=== PATIENT | female | born 1995 | race Caucasian/White ===

== ENCOUNTER 2022-10-18 01:53 | Emergency (ER) | payer OTHER, SELFPAY ==
[2022-10-18 02:08] VITALS: BP 146/100; PULSE 114; RESP 20; TEMP 36.9; O2SAT 98; BMI 26.4
[2022-10-18 02:27] VITALS: BP 141/95; PULSE 110; RESP 14; O2SAT 98
--- NOTE | 2022-10-18 02:30 | ED.GENADULT ---
HPI - General Adult General Chief complaint: General Medical Stated complaint: left arm pain, going numb, feeling faint Time Seen by Provider: 10/18/22 02:21 Source: patient Mode of arrival: ambulatory Limitations: no limitations History of Present Illness HPI narrative: Patient history of depression been drinking heavy for last 4-5 days drinks whiskey also patient been vomiting since yesterday not able to eat much denies any abdominal pain complaining of dizziness and left arm numbness no headache denies any suicide ideation feeling increasingly depressed also patient is complaining of numbness the left hand which has gone now Related Data Allergies Allergy/AdvReac Type Severity Reaction Status Date / Time No Known Allergies Allergy Unverified 06/15/20 16:32 [No Known Allergies*] Review of Systems Review of Systems: Yes all other systems are reviewed and are negative [facility], [facility] Social History Social History Alcohol intake: current Alcohol type: hard liquor Smoked in Last 30 Days: Yes Substance Use Type: Marijuana Substance Use Frequency: Daily Substance Use Frequency Other:: once daily Last Used Substance: Hours (ago) Advance Directives: No Advance Directives Information Provided: Yes Physical Exam ED Vital Signs: Vital Signs - 24 hr 10/18/22 02:08 10/18/22 02:27 10/18/22 04:49 Temperature 98.4 F 99.5 F Pulse Rate 114 H 110 H 100 Respiratory Rate 20 14 14 Blood Pressure 146/100 H 141/95 H 133/83 Pulse Oximetry 98 98 100 Oxygen Delivery Method Room Air Room Air Room Air BMI result Body Mass Index 26.4 Appearance: Alert. Oriented X3. No acute distress. Anxious Eyes: PERRLA, No Nystagmus ENT: Pharynx normal. Oral Mucosa moist Neck: Normal inspection. Neck supple. CVS: Sinus tachycardia Pulses normal. Respiratory: No respiratory distress. Equal air entry bilateral, no wheezing/rales/rhonchi Abdomen: Soft and nontender. Bowel sounds are present, no mass palpable, no CVA tenderness Skin: Skin warm and dry. Normal skin color. Normal skin turgor. Extremities: No lower extremity edema. No calf tenderness Neuro: Oriented X 3. No motor deficit. No sensory deficit.No cerebellar signs , cranial nerves II-XII intact Medications Administered Discontinued Medications Generic Name Dose Route Start Last Admin Trade Name Freq PRN Reason Stop Dose Admin Famotidine 20 mg 10/18/22 02:35 10/18/22 03:05 Famotidine/Pf 20 Mg/2 Ml Vial IVPUSH 10/18/22 02:36 20 mg ONCE ONE Administration Sodium Chloride 1,000 mls @ 999 mls/hr 10/18/22 02:34 10/18/22 04:20 Ns IV 10/18/22 03:34 Infused .Q1H1M ONE Infusion Lorazepam 1 mg 10/18/22 02:35 10/18/22 03:05 Lorazepam 1 Mg Tablet PO 10/18/22 02:36 1 mg ONCE ONE Administration Ondansetron HCl 4 mg 10/18/22 02:34 10/18/22 03:05 Ondansetron Hcl 4 Mg/2 Ml Vial IVPUSH 10/18/22 02:35 4 mg ONCE ONE Administration Medical Decision Making Medical Decision Making MDM Narrative: Patient alcohol abuse/dependence Lab Data MDM Lab Attestation statement: I reviewed the patient's lab results. 10/18/22 02:44 10/18/22 02:44 Labs: Lab Results 10/18/22 10/18/22 10/18/22 Range/Units 02:44 02:44 04:38 WBC 16.1 H (4.8-10.8) X10*3/uL RBC 5.42 (4.20-5.50) X10*6/uL Hgb 15.4 (12.0-16.0) g/dl Hct 45.1 (37.0-47.0) % MCV 83.2 (80.0-98.0) fL MCH 28.4 (27.0-33.0) pg MCHC 34.1 (31.0-35.0) g/dl RDW 13.8 (11.0-16.0) % Plt Count 366 (160-400) X10*3/uL MPV 8.7 L (9.4-12.3) fL Immature Gran % (Auto) 0.2 (0.0-0.4) % Neut % (Auto) 82.8 H (45-73) % Lymph % (Auto) 10.9 L (20-40) % [place] % (Auto) 5.6 (2-11) % Eos % (Auto) 0.1 (0-4) % Baso % (Auto) 0.4 (0-2) % Lymph # (Auto) 1.8 (1.2-4.9) X10*3/uL [place] # (Auto) 0.9 (0.1-1.2) X10*3/uL Eos # (Auto) 0.0 (0.0-0.4) X10*3/uL Baso # (Auto) 0.1 (0.0-0.2) X10*3/uL Abs Immat Gran (auto) 0.04 H (0.00-0.03) X10*3/uL Absolute Neuts (auto) 13.3 H (2.0-8.3) x10*3/uL Absolute Nucleated RBC 0.000 (0.0-0.012) X10*3/uL Nucleated RBC % (auto) 0.0 (0.0-0.2) /100WBC Sodium 137 (135-145) mmol/L Potassium 3.4 (3.3-5.1) mmol/L Chloride 97 (96-108) mmol/L Carbon Dioxide 26 (22-29) mmol/L Anion Gap 17 (12-20) BUN 4 L (9-16) mg/dL Creatinine 0.75 (0.5-1.4) mg/dL Estim Creat Clear Calc 97.0 Estimated GFR > 60 Random Glucose 132 H (60-115) mg/dL Calcium 9.6 (8.4-10.2) mg/dL Magnesium 1.6 (1.6-2.6) mg/dL Total Bilirubin 0.8 (0.0-1.0) mg/dL AST 35 H (5-31) U/L ALT 22 (0-31) U/L Alkaline Phosphatase 92 (39-117) U/L Total Protein 7.9 (6.5-8.0) g/dL Albumin 4.6 (3.5-5.0) g/dL Lipase 9 (8-78) U/L Urine Color Yellow Urine Appearance Cloudy Urine pH 6.0 (5.0-9.0) Ur Specific [place] 1.020 (1.005-1.025) Urine Protein 30 (1+) H (Neg-Trace) mg/dL Urine Glucose (UA) Negative (Negative) mg/dL Urine Ketones 15 (Negative) mg/dL Urine Blood Small (1+) H (Negative) Urine Nitrite Negative (Negative) Ur Leukocyte Esterase Trace H (Negative) Urine RBC 6-10 H (0-2) /HPF Urine WBC 0-5 (0-5) /HPF Ur Squamous Epith Cells 11-20 (0-2) /HPF Urine Bacteria Trace (None Seen) Hyaline Casts 0-2 (0-2) /LPF Urine Test (NEGATIVE) Ethyl Alcohol < 10 mg/dL 10/18/22 Range/Units 04:38 WBC (4.8-10.8) X10*3/uL RBC (4.20-5.50) X10*6/uL Hgb (12.0-16.0) g/dl Hct (37.0-47.0) % MCV (80.0-98.0) fL MCH (27.0-33.0) pg MCHC (31.0-35.0) g/dl RDW (11.0-16.0) % Plt Count (160-400) X10*3/uL MPV (9.4-12.3) fL Immature Gran % (Auto) (0.0-0.4) % Neut % (Auto) (45-73) % Lymph % (Auto) (20-40) % [place] % (Auto) (2-11) % Eos % (Auto) (0-4) % Baso % (Auto) (0-2) % Lymph # (Auto) (1.2-4.9) X10*3/uL [place] # (Auto) (0.1-1.2) X10*3/uL Eos # (Auto) (0.0-0.4) X10*3/uL Baso # (Auto) (0.0-0.2) X10*3/uL Abs Immat Gran (auto) (0.00-0.03) X10*3/uL Absolute Neuts (auto) (2.0-8.3) x10*3/uL Absolute Nucleated RBC (0.0-0.012) X10*3/uL Nucleated RBC % (auto) (0.0-0.2) /100WBC Sodium (135-145) mmol/L Potassium (3.3-5.1) mmol/L Chloride (96-108) mmol/L Carbon Dioxide (22-29) mmol/L Anion Gap (12-20) BUN (9-16) mg/dL Creatinine (0.5-1.4) mg/dL Estim Creat Clear Calc Estimated GFR Random Glucose (60-115) mg/dL Calcium (8.4-10.2) mg/dL Magnesium (1.6-2.6) mg/dL Total Bilirubin (0.0-1.0) mg/dL AST (5-31) U/L ALT (0-31) U/L Alkaline Phosphatase (39-117) U/L Total Protein (6.5-8.0) g/dL Albumin (3.5-5.0) g/dL Lipase (8-78) U/L Urine Color Urine Appearance Urine pH (5.0-9.0) Ur Specific [place] (1.005-1.025) Urine Protein (Neg-Trace) mg/dL Urine Glucose (UA) (Negative) mg/dL Urine Ketones (Negative) mg/dL Urine Blood (Negative) Urine Nitrite (Negative) Ur Leukocyte Esterase (Negative) Urine RBC (0-2) /HPF Urine WBC (0-5) /HPF Ur Squamous Epith Cells (0-2) /HPF Urine Bacteria (None Seen) Hyaline Casts (0-2) /LPF Urine Test NEGATIVE (NEGATIVE) Ethyl Alcohol mg/dL Discharge Plan Discharge Clinical Impression: Alcohol abuse Patient Disposition: Home, Self-Care Instructions: Abuse of Alcohol (ED) Additional Instructions: Stop drinking alcohol Follow-up with detox
[2022-10-18 02:57] LABS: MANUAL DIFF FLAG NO
[2022-10-18 02:58] LABS: Basophils Absolute Auto 0.1 X10*3/uL (0.0-0.2); Basophils Percent Auto 0.4 % (0-2); Eosinophils Percent Auto 0.1 % (0-4); Hematocrit 45.1 % (37.0-47.0); Hemoglobin 15.4 g/dl (12.0-16.0); Imm Gran Abs Auto 0.04 X10*3/uL (0.00-0.03); Imm Gran Pct Auto 0.2 % (0.0-0.4); Lymphocytes Absolute Auto 1.8 X10*3/uL (1.2-4.9); Lymphocytes Percent Auto 10.9 % (20-40); Mean Corpuscular HGB Conc 34.1 g/dl (31.0-35.0); Mean Corpuscular Hemoglobin 28.4 pg (27.0-33.0); Mean Corpuscular Volume 83.2 fL (80.0-98.0); Mean Platelet Volume 8.7 fL (9.4-12.3); Monocytes Absolute Auto 0.9 X10*3/uL (0.1-1.2); Monocytes Percent Auto 5.6 % (2-11); Neutrophils Absolute Auto 13.3 x10*3/uL (2.0-8.3); Neutrophils Percent Auto 82.8 % (45-73); Platelet Count 366 X10*3/uL (160-400); Red Blood Count 5.42 X10*6/uL (4.20-5.50); Red Cell Distribution Width 13.8 % (11.0-16.0); White Blood Count 16.1 X10*3/uL (4.8-10.8)
[2022-10-18] MEDS: ondansetron HCL 4 MG/2 ML VIAL IVPUSH (03:05)
[2022-10-18] MEDS: Famotidine/PF 20 MG/2 ML VIAL IVPUSH (03:05)
[2022-10-18] MEDS: LORazepam 1 MG TABLET PO (03:05)
[2022-10-18] MEDS: 0.9 % Sodium Chloride 1,000 ML 999 ML IV (03:06)
[2022-10-18 03:18] LABS: Alanine Aminotransferase 22 U/L (0-31); Albumin Level 4.6 g/dL (3.5-5.0); Alkaline Phosphatase 92 U/L (39-117); Anion Gap 17 (12-20); Aspartate Amino Transferase 35 U/L (5-31); Bilirubin Total 0.8 mg/dL (0.0-1.0); Blood Urea Nitrogen 4 mg/dL (9-16); Calcium 9.6 mg/dL (8.4-10.2); Carbon Dioxide 26 mmol/L (22-29); Chloride 97 mmol/L (96-108); Estimated Glomerular Filt Rate > 60; Ethanol < 10 mg/dL; Glucose Random 132 mg/dL (60-115); Lipase 9 U/L (8-78); Magnesium 1.6 mg/dL (1.6-2.6); Potassium 3.4 mmol/L (3.3-5.1); Sodium 137 mmol/L (135-145); Total Protein 7.9 g/dL (6.5-8.0)
[2022-10-18 04:49] VITALS: BP 133/83; PULSE 100; RESP 14; TEMP 37.5; O2SAT 100
--- NOTE | 2022-10-18 04:59 | PC.NURSE ---
pt ambulated independently/safely to restroom, pt states anxiety has decreased in intensity
[2022-10-18 05:27] LABS: Appearance Urine Cloudy; Color Urine Yellow; Glucose Urine UA Negative (Negative); Leukocyte Esterase Urine Trace (Negative); Nitrite Urine Negative (Negative); UMIC TRIGGER UACC YES; Urine Blood Small (1+) (Negative); Urine Ketones 15 mg/dL (Negative); Urine Protein 30 (1+) mg/dL (Neg-Trace)
[2022-10-18 05:29] LABS: UPreg QC Valid YES; Urine Pregnancy NEGATIVE (NEGATIVE)
[2022-10-18 05:32] LABS: Bacteria Urine Trace (None Seen); Hyaline Casts Urine 0-2 /LPF (0-2); WBC Urine 0-5 /HPF (0-5)
[2022-10-18 05:42] LABS: Amphetamine Screen Urine Not Detected (Not Detect); Barbiturates, Urine Not Detected (Not Detect); Benzodiazepines Screen Urine Not Detected (Not Detect); Cannabinoid Screen Urine POSITIVE (Not Detect); Cocaine Screen Urine Not Detected (Not Detect); Fentanyl, urine Not Detected (Not Detect); Opiate Screen Urine Not Detected (Not Detect); Phencyclidine Screen Urine Not Detected (Not Detect)
--- NOTE | 2022-10-18 06:09 | PC.NURSE ---
discharge instructions given and explained, iv cath tip intact upon removal, ambulates safely/independently. no apparent distress
== END 2022-10-18 06:08 | disposition home or self-care (01) ==
PROVIDERS: Emergency Provider Internal Medicine; PCP Pediatrics
DX: M79.602 Pain in left arm (principal); F10.10 Alcohol abuse, uncomplicated; R20.0 Anesthesia of skin; R11.10 Vomiting, unspecified; R42 Dizziness and giddiness; F32.A Depression, unspecified
CPT/HCPCS: 36415; 80053; 80307; 81001; 81025; 82077; 83690; 83735; 85025; 96361; 96374; 96375; 99284; J2405

== ENCOUNTER 2022-10-27 05:46 | Emergency (ER) | payer OTHER, SELFPAY ==
[2022-10-27 05:56] VITALS: BP 143/89; PULSE 102; RESP 18; TEMP 36.6; O2SAT 99
[2022-10-27 05:59] VITALS: BMI 26.4
--- NOTE | 2022-10-27 06:36 | PC.NURSE ---
Melyssa presents for evaluation of RUE numbness and tingling that she has been experiencing intermittently tonight. She states it usually happens when i've been on a figueroa. Pt admits to heavy alcohol use last night. SHe has no other complaints. Pt is awaiting initial provider johnathan.
--- NOTE | 2022-10-27 07:17 | ED_ITS ---
HPI - Extremity Problem General Chief complaint: Extremity Injury, Upper Stated complaint: left hand numb Time Seen by Provider: 10/27/22 06:41 Source: patient Mode of arrival: ambulatory History of Present Illness HPI Narrative: 27-year-old female who consumes alcohol and has mild withdrawal symptoms in states that she has recurrent difficulties with her left upper extremity being numb and tingly after drinking large amounts of alcohol. Patient denies any traumatic injury, and states that it is her entire left upper extremity. She denies any weakness. Related Data Allergies Allergy/AdvReac Type Severity Reaction Status Date / Time No Known Allergies Allergy Unverified 06/15/20 16:32 [No Known Allergies*] Review of Systems Review of Systems: Pertinent positives and negatives as stated in [facility] Past Medical History Source: nursing notes reviewed Social History Social History Alcohol intake: current Alcohol type: hard liquor Substance Use Type: Marijuana Advance Directives: No Advance Directives Information Provided: Yes Physical Exam Vital Signs: Vital Signs: Last Vital Signs Temp 97.9 F 10/27/22 05:56 Pulse 102 H 10/27/22 05:56 Resp 18 10/27/22 05:56 BP 143/89 H 10/27/22 05:56 Pulse Ox 99 10/27/22 05:56 O2 Del Method 10/27/22 05:56 BMI result Body Mass Index 26.4 VITAL SIGNS: Reviewed. GENERAL: Well developed, well nourished, in no acute distress. HEAD: Normocephalic/atraumatic EYES: PERRLA, EOMI EARS: Ext canals without abnormality OROPHARYNX: no oral lesions noted, posterior pharynx clear NECK: Supple, no adenopathy, no midline cervical spine tenderness or step-offs, range of motion without pain LUNGS: Normal breath sounds. No adventitious sounds or accessory muscle use. SpO2<99> CARDIOVASCULAR: Regular rate and rhythm without noted murmurs ABDOMEN: Soft, non-tender, non-distended with bowel sounds. MUSCULOSKELETAL: No tenderness, deformities, or effusions noted on gross inspection. EXTREMITIES: No cyanosis, clubbing or edema; LEFT UPPER EXTREMITY: Full range of motion at the shoulder/elbow/wrist without erythema or induration, no color changes, palpable pulses at the radius/ulna/brachial hand natural gas inspector 5/5, capillary refill less than 3 seconds seems an abrupt cutoff at the shoulder there is no s welling or erythema to suggest congestion or infection. SKIN: Inspection of the skin reveals no rashes NEUROLOGIC: Alert and oriented x 4. Strength and sensation to light touch were grossly intact x 4. Medical Decision Making Medical Decision Making [facility] Narrative: 27-year-old female with alcohol use disorder in suspect that patient has neuropathic pain in symptoms from the alcohol use as this is a in atraumatic, recurrent problem, will assess with basic lab work to evaluate electrolyte balance. Of reviewed all investigations and my interpretation is that this is nothing to do with any sort of venous/arterial insufficiency, not consistent with focal findings or cervical radiculopathy and still feel that this is likely related to patient's alcohol use. I did add on a B12 and instructed the patient follow-up with her primary care provider, I gave patient folic acid as well as thiamine in have instructed the patient to initiate multivitamin for additional support as she is declining detox at this time. Differential Diagnosis Differential Diagnoses: The differential diagnosis associated with the presentation includes Please see the discussion above Lab Data [facility] Lab Attestation statement: I reviewed the patient's lab results. Please see the discussion above 10/27/22 07:17 10/27/22 07:17 Labs: Lab Results 10/27/22 10/27/22 Range/Units 07:17 07:17 WBC 9.1 (4.8-10.8) X10*3/uL RBC 5.15 (4.20-5.50) X10*6/uL Hgb 14.9 (12.0-16.0) g/dl Hct 44.7 (37.0-47.0) % MCV 86.8 (80.0-98.0) fL MCH 28.9 (27.0-33.0) pg MCHC 33.3 (31.0-35.0) g/dl RDW 13.8 (11.0-16.0) % Plt Count 324 (160-400) X10*3/uL MPV 9.0 L (9.4-12.3) fL Immature Gran % (Auto) 0.4 (0.0-0.4) % Neut % (Auto) 74.7 H (45-73) % Lymph % (Auto) 16.9 L (20-40) % [place] % (Auto) 7.4 (2-11) % Eos % (Auto) 0.2 (0-4) % Baso % (Auto) 0.4 (0-2) % Lymph # (Auto) 1.5 (1.2-4.9) X10*3/uL [place] # (Auto) 0.7 (0.1-1.2) X10*3/uL Eos # (Auto) 0.0 (0.0-0.4) X10*3/uL Baso # (Auto) 0.0 (0.0-0.2) X10*3/uL Abs Immat Gran (auto) 0.04 H (0.00-0.03) X10*3/uL Absolute Neuts (auto) 6.8 (2.0-8.3) x10*3/uL Absolute Nucleated RBC 0.000 (0.0-0.012) X10*3/uL Nucleated RBC % (auto) 0.0 (0.0-0.2) /100WBC Sodium 136 (135-145) mmol/L Potassium 4.0 (3.3-5.1) mmol/L Chloride 102 (96-108) mmol/L Carbon Dioxide 21 L (22-29) mmol/L Anion Gap 17 (12-20) BUN 5 L (9-16) mg/dL Creatinine 0.66 (0.5-1.4) mg/dL Estim Creat Clear Calc 109.3 Estimated GFR > 60 Random Glucose 91 (60-115) mg/dL Calcium 9.1 (8.4-10.2) mg/dL Magnesium 2.1 (1.6-2.6) mg/dL Total Bilirubin 0.4 (0.0-1.0) mg/dL AST 32 H (5-31) U/L ALT 28 (0-31) U/L Alkaline Phosphatase 82 (39-117) U/L Total Protein 7.4 (6.5-8.0) g/dL Albumin 4.4 (3.5-5.0) g/dL External Record Review External record reviewed: Outpatient record and Prior outpatient labs Discharge Plan Discharge Clinical Impression: Neuropathy, Alcohol use disorder Patient Disposition: Home, Self-Care Instructions: Peripheral Neuropathy (ED), At-Risk Alcohol Use (ED), Alcohol Withdrawal (ED) Additional Instructions: 1. Recommend that you initiate a multivitamin daily, and if at any time he would like to pursue detox please do not hesitate to return to the emergency room. 2. Please follow-up with your primary care provider has they will follow-up on the vitamin B12 level that we have ordered Lindy have been given medication today. Return to the ER for any worsening symptoms.
--- NOTE | 2022-10-27 07:19 | MHC.EDTECH ---
Lab work collected and sent. Pt given cup of water
[2022-10-27 07:21] LABS: MANUAL DIFF FLAG NO
[2022-10-27 07:27] LABS: Basophils Percent Auto 0.4 % (0-2); Eosinophils Percent Auto 0.2 % (0-4); Hematocrit 44.7 % (37.0-47.0); Hemoglobin 14.9 g/dl (12.0-16.0); Imm Gran Abs Auto 0.04 X10*3/uL (0.00-0.03); Imm Gran Pct Auto 0.4 % (0.0-0.4); Lymphocytes Absolute Auto 1.5 X10*3/uL (1.2-4.9); Lymphocytes Percent Auto 16.9 % (20-40); Mean Corpuscular HGB Conc 33.3 g/dl (31.0-35.0); Mean Corpuscular Hemoglobin 28.9 pg (27.0-33.0); Mean Corpuscular Volume 86.8 fL (80.0-98.0); Monocytes Absolute Auto 0.7 X10*3/uL (0.1-1.2); Monocytes Percent Auto 7.4 % (2-11); Neutrophils Absolute Auto 6.8 x10*3/uL (2.0-8.3); Neutrophils Percent Auto 74.7 % (45-73); Platelet Count 324 X10*3/uL (160-400); Red Blood Count 5.15 X10*6/uL (4.20-5.50); Red Cell Distribution Width 13.8 % (11.0-16.0); White Blood Count 9.1 X10*3/uL (4.8-10.8)
[2022-10-27 07:45] LABS: Alanine Aminotransferase 28 U/L (0-31); Albumin Level 4.4 g/dL (3.5-5.0); Alkaline Phosphatase 82 U/L (39-117); Anion Gap 17 (12-20); Aspartate Amino Transferase 32 U/L (5-31); Bilirubin Total 0.4 mg/dL (0.0-1.0); Blood Urea Nitrogen 5 mg/dL (9-16); Calcium 9.1 mg/dL (8.4-10.2); Carbon Dioxide 21 mmol/L (22-29); Chloride 102 mmol/L (96-108); Creatinine Clr Calc Pharmacy 109.3; Estimated Glomerular Filt Rate > 60; Glucose Random 91 mg/dL (60-115); Magnesium 2.1 mg/dL (1.6-2.6); Sodium 136 mmol/L (135-145); Total Protein 7.4 g/dL (6.5-8.0)
[2022-10-27] MEDS: Folic Acid 1 MG TABLET PO (08:08)
[2022-10-27] MEDS: Thiamine HCL 100 MG TABLET PO (08:08)
[2022-10-27 08:37] LABS: Vitamin B12 451 pg/mL (200-900)
== END 2022-10-27 08:10 | disposition home or self-care (01) ==
PROVIDERS: Emergency Provider Student in an Organized Health Care Education/Training Program
DX: G62.9 Polyneuropathy, unspecified (principal); F10.90 Alcohol use, unspecified, uncomplicated; Y90.9 Presence of alcohol in blood, level not specified; Z79.899 Other long term (current) drug therapy
CPT/HCPCS: 36415; 80053; 82607; 83735; 85025; 99284

== ENCOUNTER 2023-07-24 00:08 | Emergency (ER) | payer OTHER, SELFPAY ==
--- NOTE | 2023-07-24 | ECG_ITS ---
Test Reason : ETOH Blood Pressure : / mmHG Vent. Rate : 067 BPM Atrial Rate : 067 BPM P-R Int : 120 ms QRS Dur : 098 ms QT Int : 410 ms P-R-T Axes : 029 051 033 degrees QTc Int : 433 ms Normal sinus rhythm Normal ECG No previous ECGs available Referred By: Rhonda Wheat Electronically Signed By:SUSANNAH ÁLVAREZ MD
[2023-07-24 00:17] VITALS: BP 158/96; PULSE 76; RESP 22; TEMP 36.4; O2SAT 99; BMI 30.7
--- NOTE | 2023-07-24 00:29 | PC.NURSE ---
last drink friday. denies seizures in the past. n/v., sweaty pt sts drinks a lot normally 2 times a week of hard liquor
[2023-07-24 00:32] VITALS: BP 145/85; PULSE 77; RESP 18; O2SAT 95
[2023-07-24 00:49] LABS: Basophils Percent Auto 0.3 % (0-2); Eosinophils Percent Auto 0.5 % (0-4); Hematocrit 41.4 % (37.0-47.0); Hemoglobin 13.8 g/dl (12.0-16.0); Imm Gran Abs Auto 0.02 X10*3/uL (0.00-0.03); Imm Gran Pct Auto 0.2 % (0.0-0.4); Lymphocytes Absolute Auto 2.3 X10*3/uL (1.2-4.9); Lymphocytes Percent Auto 26.8 % (20-40); MANUAL DIFF FLAG NO; Mean Corpuscular HGB Conc 33.3 g/dl (31.0-35.0); Mean Corpuscular Hemoglobin 29.1 pg (27.0-33.0); Mean Corpuscular Volume 87.2 fL (80.0-98.0); Mean Platelet Volume 8.7 fL (9.4-12.3); Monocytes Absolute Auto 0.6 X10*3/uL (0.1-1.2); Monocytes Percent Auto 7.1 % (2-11); Neutrophils Absolute Auto 5.7 x10*3/uL (2.0-8.3); Neutrophils Percent Auto 65.1 % (45-73); Platelet Count 343 X10*3/uL (160-400); Red Blood Count 4.75 X10*6/uL (4.20-5.50); Red Cell Distribution Width 13.4 % (11.0-16.0); White Blood Count 8.7 X10*3/uL (4.8-10.8)
[2023-07-24 00:51] LABS: Appearance Urine Cloudy; Color Urine Yellow; Glucose Urine UA Negative (Negative); Leukocyte Esterase Urine Small (1+) (Negative); Nitrite Urine Negative (Negative); UMIC TRIGGER UACC YES; Urine Blood Moderate (2+) (Negative); Urine Ketones >=160 mg/dL (Negative); Urine Protein Trace mg/dL (Neg-Trace)
[2023-07-24 00:56] LABS: Bacteria Urine 3+ (None Seen); Hyaline Casts Urine 0-2 /LPF (0-2); Squamous Epithelial Cell Urine >20 /HPF (0-2); UACC Culture Trigger YES
[2023-07-24 01:04] LABS: Ethanol < 10 mg/dL
[2023-07-24 01:10] LABS: Amphetamine Screen Urine Not Detected (Not Detect); Barbiturates, Urine Not Detected (Not Detect); Benzodiazepines Screen Urine Not Detected (Not Detect); Cannabinoid Screen Urine POSITIVE (Not Detect); Cocaine Screen Urine Not Detected (Not Detect); Opiate Screen Urine Not Detected (Not Detect); Phencyclidine Screen Urine Not Detected (Not Detect)
[2023-07-24 01:12] LABS: Alanine Aminotransferase 30 U/L (0-31); Albumin Level 4.6 g/dL (3.5-5.0); Alkaline Phosphatase 101 U/L (39-117); Anion Gap 19 (12-20); Aspartate Amino Transferase 28 U/L (5-31); Bilirubin Total 0.9 mg/dL (0.0-1.0); Blood Urea Nitrogen 6 mg/dL (9-16); Calcium 9.9 mg/dL (8.4-10.2); Carbon Dioxide 23 mmol/L (22-29); Chloride 96 mmol/L (96-108); Estimated Glomerular Filt Rate > 60; Glucose Random 122 mg/dL (60-115); Potassium 3.4 mmol/L (3.3-5.1); Sodium 135 mmol/L (135-145); Total Protein 8.1 g/dL (6.5-8.0)
[2023-07-24 01:13] LABS: HCG Quantitative < 2 mIU/mL
[2023-07-24 01:31] LABS: Fentanyl, urine Not Detected (Not Detect)
[2023-07-24 01:38] VITALS: BP 126/77; PULSE 71; RESP 16; TEMP 36.7; O2SAT 98
--- NOTE | 2023-07-24 01:51 | ED_ITS ---
HPI - Alcohol General Chief Complaint: ETOH/Substance Use Stated Complaint: Alcohol withdrawal Time Seen by Provider: 07/24/23 00:39 Source: patient Mode of arrival: ambulatory History of Present Illness HPI narrative: 27-year-old female who presents with request for alcohol detox and she has noted there are withdrawal symptoms have become more and more prominent. She denies any suicidal ideation and was seen by [facility] yesterday. Related Data Allergies Allergy/AdvReac Type Severity Reaction Status Date / Time No Known Allergies Allergy Unverified 06/15/20 16:32 [No Known Allergies*] Review of Systems 2 Review of Systems: Pertinent positives and negatives as stated in HPI. PMF Past Medical History Source: nursing notes reviewed Social History Social History Alcohol intake: current Alcohol intake frequency: a few times a week Alcohol type: hard liquor Use of substances other than those prescribed or required for medical reasons: No Substance Use Type: Marijuana Advance Directives: No Advance Directives Information Provided: Yes Physical Exam ED Vital Signs: Vital Signs - 24 hr 07/24/23 00:17 07/24/23 00:32 07/24/23 01:38 Temperature 97.6 F 98.1 F Pulse Rate 76 77 71 Respiratory Rate 22 H 18 16 Blood Pressure 158/96 H 145/85 H 126/77 Pulse Oximetry 99 95 98 Oxygen Delivery Method Room Air Room Air Room Air BMI result Body Mass Index 30.7 VITAL SIGNS: Reviewed. GENERAL: Well developed, well nourished, in no acute distress. HEAD: Normocephalic/atraumatic EYES: PERRLA, EOMI EARS: Ext canals without abnormality NOSE: Nares patent bilateral OROPHARYNX: no oral lesions noted, posterior pharynx clear NECK: Supple, no adenopathy LUNGS: Normal breath sounds. No adventitious sounds or accessory muscle use. SpO2<98> CARDIOVASCULAR: Regular rate and rhythm without noted murmurs ABDOMEN: Soft, non-tender, non-distended with bowel sounds. MUSCULOSKELETAL: No tenderness, deformities, or effusions noted on gross inspection. EXTREMITIES: No cyanosis, clubbing or edema. SKIN: Inspection of the skin reveals no rashes NEUROLOGIC: Alert and oriented x 4. Strength and sensation to light touch were grossly intact x 4, cranial nerves 2-12 are grossly intact.. Medical Decision Making Medical Decision Making MDM Narrative: 27-year-old female with history and clinical presentation consistent with alcohol use disorder, she is concerned regarding her current withdrawal symptoms and will be placed on a CIWA. Patient has no history of seizures due to withdrawals and I strongly encouraged patient to stick around until assistant football coach is able to evaluate her in the morning. I reviewed all investigations and hematologic indices are grossly within normal limits without leukocytosis or left shift, there is no anemia or thrombocytopenia. Chemistry indices are grossly within normal limits without evidence of RITIKA or electrolyte/liver enzyme abnormalities. Urinalysis as is grossly contaminated and suspect findings are consistent with current menstruation. Alcohol is undetectable and UDS is only positive for marijuana. Patient is currently comfortable and does not show significant signs of withdrawal but is on a CIWA scale. She is otherwise medically cleared for further evaluation by the recovery team. Patient placed in physician observation because the patient needed more time for evaluation by the assistant football coach. At the time observation was started the patient's vital signs were stable, patient is alert and oriented, neuro: Nonfocal, CV RRR, lungs clear 0228: Patient is declining to stay and is discharged home in stable condition, there is no evidence of tachycardia, tachypnea, hypertension and no significant withdrawal symptoms. Patient also reports that she is feeling much better. Physician observation has ended at this time. Differential Diagnosis Differential Diagnoses: The differential diagnosis associated with the presentation includes Please see the discussion above Admission/Observation Consideration of admission/observation: Escalation of care including admission/observation considered Please see the discussion above Lab Data [facility] Lab Attestation statement: I reviewed the patient's lab results. Please see the discussion above 07/24/23 00:44 07/24/23 00:44 Labs: Lab Results 07/24/23 Range/Units 00:44 WBC 8.7 (4.8-10.8) X10*3/uL RBC 4.75 (4.20-5.50) X10*6/uL Hgb 13.8 (12.0-16.0) g/dl Hct 41.4 (37.0-47.0) % MCV 87.2 (80.0-98.0) fL MCH 29.1 (27.0-33.0) pg MCHC 33.3 (31.0-35.0) g/dl RDW 13.4 (11.0-16.0) % Plt Count 343 (160-400) X10*3/uL MPV 8.7 L (9.4-12.3) fL Immature Gran % (Auto) 0.2 (0.0-0.4) % Neut % (Auto) 65.1 (45-73) % Lymph % (Auto) 26.8 (20-40) % [place] % (Auto) 7.1 (2-11) % Eos % (Auto) 0.5 (0-4) % Baso % (Auto) 0.3 (0-2) % Lymph # (Auto) 2.3 (1.2-4.9) X10*3/uL [place] # (Auto) 0.6 (0.1-1.2) X10*3/uL Eos # (Auto) 0.0 (0.0-0.4) X10*3/uL Baso # (Auto) 0.0 (0.0-0.2) X10*3/uL Abs Immat Gran (auto) 0.02 (0.00-0.03) X10*3/uL Absolute Neuts (auto) 5.7 (2.0-8.3) x10*3/uL Absolute Nucleated RBC 0.000 (0.0-0.012) X10*3/uL Nucleated RBC % (auto) 0.0 (0.0-0.2) /100WBC Sodium 135 (135-145) mmol/L Potassium 3.4 (3.3-5.1) mmol/L Chloride 96 (96-108) mmol/L Carbon Dioxide 23 (22-29) mmol/L Anion Gap 19 (12-20) BUN 6 L (9-16) mg/dL Creatinine 0.76 (0.5-1.4) mg/dL Estim Creat Clear Calc 102.0 Estimated GFR > 60 Random Glucose 122 H (60-115) mg/dL Calcium 9.9 D (8.4-10.2) mg/dL Total Bilirubin 0.9 (0.0-1.0) mg/dL AST 28 (5-31) U/L ALT 30 (0-31) U/L Alkaline Phosphatase 101 (39-117) U/L Total Protein 8.1 H (6.5-8.0) g/dL Albumin 4.6 (3.5-5.0) g/dL Beta HCG, Quant < 2 mIU/mL Urine Color Yellow Urine Appearance Cloudy Urine pH 6.0 (5.0-9.0) Ur Specific [place] 1.020 (1.005-1.025) Urine Protein Trace (Neg-Trace) mg/dL Urine Glucose (UA) Negative (Negative) mg/dL Urine Ketones >=160 (Negative) mg/dL Urine Blood Moderate (2+) H (Negative) Urine Nitrite Negative (Negative) Ur Leukocyte Esterase Small (1+) H (Negative) Urine RBC 6-10 H (0-2) /HPF Urine WBC 6-10 H (0-5) /HPF Ur Squamous Epith Cells >20 (0-2) /HPF Urine Bacteria 3+ (None Seen) Hyaline Casts 0-2 (0-2) /LPF Urine Opiates Screen Not Detected (Not Detect) Urine Fentanyl Screen Not Detected (Not Detect) Ur Barbiturates Screen Not Detected (Not Detect) Ur Phencyclidine Scrn Not Detected (Not Detect) Ur Amphetamines Screen Not Detected (Not Detect) U Benzodiazepines Scrn Not Detected (Not Detect) Urine Cocaine Screen Not Detected (Not Detect) U Marijuana (THC) Screen POSITIVE H (Not Detect) Ethyl Alcohol < 10 mg/dL Independent Interpretation I performed an independent interpretation of an: EKG Interpretation: Normal sinus rhythm, HR-67, no STEMI, MT/QRS/QTC is within normal limits. External Record Review External record reviewed: Outpatient record and Prior outpatient labs Chronic Conditions Patient?s care impacted by: Other Alcohol use disorder Critical Care Time Critical Care Time Critical Care Time: Yes Total Critical Care Time: 30 Attestation: I personally attest to this time spent taking care of the patient. Discharge Plan Discharge Clinical Impression: Alcohol withdrawal syndrome, Alcohol use disorder Patient Disposition: Home, Self-Care Instructions: Abuse of Alcohol (ED) Additional Instructions: Please do not hesitate to return to the emergency room should you wish to pursue detox.
== END 2023-07-24 02:40 | disposition home or self-care (01) ==
PROVIDERS: Emergency Provider Student in an Organized Health Care Education/Training Program
DX: F10.139 Alcohol abuse with withdrawal, unspecified (principal); Y90.0 Blood alcohol level of less than 20 mg/100 ml; R45.1 Restlessness and agitation; F41.1 Generalized anxiety disorder; F43.0 Acute stress reaction; Z79.899 Other long term (current) drug therapy
CPT/HCPCS: 36415; 80053; 80307; 81001; 84702; 85025; 87086; 93005; 99284; 99285

== ENCOUNTER 2023-08-10 09:14 | Emergency (ER) | payer OTHER, SELFPAY ==
[2023-08-10 09:15] VITALS: BP 137/85; PULSE 99; RESP 17; TEMP 36.7; O2SAT 98; BMI 30.9
--- NOTE | 2023-08-10 09:29 | ED.ALCOHOL ---
HPI - Alcohol General Chief Complaint: ETOH/Substance Use Stated Complaint: Alcohol withdrawal Time Seen by Provider: 08/10/23 09:19 Source: patient Mode of arrival: ambulatory Limitations: no limitations History of Present Illness HPI narrative: This is a 27-year-old female with no known medical history who presents to the ER with concern for alcohol withdrawal and seeking detox for alcohol. Patient reports that she does not drink every day but when she does drink she will drink for several days in a row in large quantities. Patient states Im on a figueroa. She tells me that in the last 24 hours she has had 750 mL dependency, have a bottle of wine and whiskey. Patient reports when she does not drink she feels very anxious, very irritable and restless, gets diaphoretic, headache, nauseous and may have vomiting and feels palpitations. She has never been to a detox facility before. She denies any SI or HI. Related Data Allergies Allergy/AdvReac Type Severity Reaction Status Date / Time No Known Allergies Allergy Unverified 06/15/20 16:32 [No Known Allergies*] Review of Systems Review of Systems: Yes all other systems are reviewed and are negative Constitutional: Constitutional: Reports no additional constitutional complaints, Denies body ache(s), Denies chills, Denies fever(s), Reports headache(s) and Denies weakness Eyes: Eyes: Reports no additional eye complaints and Denies change in vision ENT: Reports system reviewed and no additional complaints, except as documented, Denies dizziness, Reports headache(s), Denies nasal congestion, Denies nasal discharge and Denies neck pain Cardiovascular: Cardiovascular: Reports no additional cardiovascular complaints, Denies chest pain, Denies leg edema and Denies dyspnea Respiratory: Respiratory: Reports no additional respiratory complaints, Denies cough and Denies dyspnea Gastrointestinal: Gastrointestinal: Reports no additional gastrointestinal complaints, Denies abdominal pain, Denies diarrhea, Reports nausea and Reports vomiting Genitourinary: Genitourinary: Reports no additional female genitourinary complaints and Denies urinary incontinence Musculoskeletal: Musculoskeletal: Reports no additional musculoskeletal complaints, Denies back pain, Denies arthralgias, Denies joint swelling, Denies neck pain, Denies numbness and Denies tingling Integumentary/Breasts: Skin/Breast: Reports system reviewed and no additional complaints, except as docu and Denies rash Neurologic: Reports system reviewed and no additional complaints, except as documented, Denies Abnormal speech present, Denies dizziness, Reports headache(s), Denies numbness, Denies tingling and Denies weakness Psychiatric: Psychiatric: Reports anxiety, Reports irritability, Denies homicidal ideation and Denies suicidal ideation [facility], [facility] Past Medical History Attestation statement: The following information was validated with the patient. Source: old records reviewed and nursing notes reviewed Social History Social History Alcohol intake: current Alcohol intake frequency: a few times a week Alcohol type: hard liquor Smoked in Last 30 Days: No Use of substances other than those prescribed or required for medical reasons: Yes Substance Use Type: Marijuana Substance Use Frequency: Chronic Longstanding Advance Directives: No Advance Directives Information Provided: No Physical Exam ED Vital Signs: Vital Signs - 24 hr 08/10/23 09:15 08/10/23 11:11 Temperature 98.1 F 98.5 F Pulse Rate 99 103 H Respiratory Rate 17 16 Blood Pressure 137/85 101/57 L Pulse Oximetry 98 100 Oxygen Delivery Method Room Air Room Air BMI result Body Mass Index 30.9 Const General: cooperative, healthy appearing, comfortable and no acute distress Orientation/consciousness: patient oriented x3 Limitations: no limitations HENMT Head: Yes normal to inspection Ears: hearing grossly normal bilaterally General nose exam: Normal external nose present Face and sinus: Yes normal facial exam Mouth: Normal oral and palatal mucosa present Throat: Yes posterior oropharynx normal Eyes General: appearance normal, both eyes and all related structures Pupils: Equal, round and reactive pupils present Neck Neck: Yes normal visual inspection Chest Chest palpation & inspection: normal inspection of the chest Resp Effort & Inspection: normal respiratory effort Auscultation: clear to auscultation bilaterally Cardio Rate: regular rate Rhythm: regular rhythm Peripheral pulses: Peripheral pulses 2+ throughout GI Inspection: Yes normal to inspection Palpation (GI): Soft to palpation and nontender Auscultation: normal bowel sounds Back/Spine/Pelvis Thoracic/Lumbar Spine: thoracic and lumbar spine normal to inspection Skin General skin exam: no rashes or lesions noted Neuro General: patient oriented x3, no focal motor deficits and normal sensation to monofilament Cranial nerves: Yes Equal, round and reactive pupils present Cognition (Neuro): normal cognition Speech: No Abnormal speech present Gait exam (Neuro): Normal gait present Motor exam (neuro): 5/5 motor strength present throughout Extrem General: Yes normal to inspection Course Course Course Narrative: Alcohol is elevated. Reviewed all other labs which are unremarkable. At this time there is no concern for acute ingestion or trauma. Will place care team consultation for detox placement Reevaluation(s) Reevaluation #1: There are no available detox beds. The patient was provided with outpatient resources. She is clinically sober. She is up and ambulating, tolerating p.o. with no difficulty. Reviewed worrisome signs and symptoms of when to return to the emergency room. Comfortable plan for discharge home. Medical Decision Making Medical Decision Making [facility] Narrative: This is a 27-year-old female with no known medical history who presents to the ER with concern for alcohol withdrawal and seeking detox for alcohol.? Patient reports that she does not drink every day but when she does drink she will drink for several days in a row in large quantities.? Patient states Im on a figueroa. She tells me that in the last 24 hours she has had 750 mL dependency, have a bottle of wine and whiskey.? Patient reports when she does not drink she feels very anxious, very irritable and restless, gets diaphoretic, headache, nauseous and may have vomiting and feels palpitations.? She has never been to a detox facility before.? She denies any SI or HI. Vitals are stable. Patient does not appear to be in acute withdrawal at this time. She is complaining of feeling anxious. Will obtain labs, drug scan, provide Ativan for anxiety and consult care team once patient is medically cleared Differential Diagnosis Differential Diagnoses: The differential diagnosis associated with the presentation includes Alcohol use disorder Alcohol withdrawal Admission/Observation Consideration of admission/observation: Escalation of care including admission/observation considered No SI or HI or need for emergent crisis evaluation and/or admission for psychiatric care Consult Healthcare Provider Management of the patient was discussed with: [employer]er Joiner Patient with data recovery planner for possible detox placement Lab Data [facility] Lab Attestation statement: I reviewed the patient's lab results. 08/10/23 09:54 08/10/23 09:54 Labs: Lab Results 08/10/23 Range/Units 09:54 WBC 11.8 H (4.8-10.8) X10*3/uL RBC 4.95 (4.20-5.50) X10*6/uL Hgb 14.1 (12.0-16.0) g/dl Hct 43.2 (37.0-47.0) % MCV 87.3 (80.0-98.0) fL MCH 28.5 (27.0-33.0) pg MCHC 32.6 (31.0-35.0) g/dl RDW 13.2 (11.0-16.0) % Plt Count 391 (160-400) X10*3/uL MPV 8.7 L (9.4-12.3) fL Immature Gran % (Auto) 0.4 (0.0-0.4) % Neut % (Auto) 74.1 H (45-73) % Lymph % (Auto) 21.4 (20-40) % [place] % (Auto) 3.5 (2-11) % Eos % (Auto) 0.1 (0-4) % Baso % (Auto) 0.5 (0-2) % Lymph # (Auto) 2.5 (1.2-4.9) X10*3/uL [place] # (Auto) 0.4 (0.1-1.2) X10*3/uL Eos # (Auto) 0.0 (0.0-0.4) X10*3/uL Baso # (Auto) 0.1 (0.0-0.2) X10*3/uL Abs Immat Gran (auto) 0.05 H (0.00-0.03) X10*3/uL Absolute Neuts (auto) 8.7 H (2.0-8.3) x10*3/uL Absolute Nucleated RBC 0.000 (0.0-0.012) X10*3/uL Nucleated RBC % (auto) 0.0 (0.0-0.2) /100WBC Sodium 139 (135-145) mmol/L Potassium 3.9 (3.3-5.1) mmol/L Chloride 104 (96-108) mmol/L Carbon Dioxide 22 (22-29) mmol/L Anion Gap 17 (12-20) BUN 4 L (9-16) mg/dL Creatinine 0.61 (0.5-1.4) mg/dL Estim Creat Clear Calc 127.6 Estimated GFR > 60 Random Glucose 113 (60-115) mg/dL Calcium 9.3 D (8.4-10.2) mg/dL Total Bilirubin 0.2 (0.0-1.0) mg/dL Direct Bilirubin < 0.2 (0.0-0.5) mg/dL AST 30 (5-31) U/L ALT 23 (0-31) U/L Alkaline Phosphatase 81 (39-117) U/L Total Protein 8.0 (6.5-8.0) g/dL Albumin 4.5 (3.5-5.0) g/dL Urine Test NEGATIVE (NEGATIVE) Urine Opiates Screen Not Detected (Not Detect) Urine Fentanyl Screen Not Detected (Not Detect) Ur Barbiturates Screen Not Detected (Not Detect) Ur Phencyclidine Scrn Not Detected (Not Detect) Ur Amphetamines Screen Not Detected (Not Detect) U Benzodiazepines Scrn Not Detected (Not Detect) Urine Cocaine Screen Not Detected (Not Detect) U Marijuana (THC) Screen POSITIVE H (Not Detect) Ethyl Alcohol 219 mg/dL Medications Administered Discontinued Medications Generic Name Dose Route Start Last Admin Trade Name Freq PRN Reason Stop Dose Admin Lorazepam 1 mg 08/10/23 09:42 08/10/23 10:09 Lorazepam 1 Mg Tablet PO 08/10/23 09:43 1 mg ONCE ONE Administration Nicotine 21 mg 08/10/23 09:42 08/10/23 10:09 Nicotine 21 Mg Patch.[id number] TRANSDERMA 08/10/23 09:43 21 mg ONCE ONE Administration Ondansetron HCl 4 mg 08/10/23 10:14 08/10/23 10:33 Ondansetron Odt 4 Mg Tab.Rapdis TRANSLINGU 08/10/23 10:15 4 mg ONCE ONE Administration Discharge Plan Discharge Clinical Impression: Alcoholic intoxication Patient Disposition: Home, Self-Care Instructions: Alcohol Intoxication (ED) Additional Instructions: See the outpatient resources provided by recovery team Referrals: Physician,Gonzalo J [Primary Care Provider] - 5 days
[2023-08-10 10:00] LABS: MANUAL DIFF FLAG NO
[2023-08-10 10:04] LABS: Basophils Absolute Auto 0.1 X10*3/uL (0.0-0.2); Basophils Percent Auto 0.5 % (0-2); Eosinophils Percent Auto 0.1 % (0-4); Hematocrit 43.2 % (37.0-47.0); Hemoglobin 14.1 g/dl (12.0-16.0); Imm Gran Abs Auto 0.05 X10*3/uL (0.00-0.03); Imm Gran Pct Auto 0.4 % (0.0-0.4); Lymphocytes Absolute Auto 2.5 X10*3/uL (1.2-4.9); Lymphocytes Percent Auto 21.4 % (20-40); Mean Corpuscular HGB Conc 32.6 g/dl (31.0-35.0); Mean Corpuscular Hemoglobin 28.5 pg (27.0-33.0); Mean Corpuscular Volume 87.3 fL (80.0-98.0); Mean Platelet Volume 8.7 fL (9.4-12.3); Monocytes Absolute Auto 0.4 X10*3/uL (0.1-1.2); Monocytes Percent Auto 3.5 % (2-11); Neutrophils Absolute Auto 8.7 x10*3/uL (2.0-8.3); Neutrophils Percent Auto 74.1 % (45-73); Platelet Count 391 X10*3/uL (160-400); Red Blood Count 4.95 X10*6/uL (4.20-5.50); Red Cell Distribution Width 13.2 % (11.0-16.0); White Blood Count 11.8 X10*3/uL (4.8-10.8)
[2023-08-10] MEDS: LORazepam 1 MG TABLET PO (10:09)
[2023-08-10] MEDS: Nicotine 21 MG PATCH.TD24 TRANSDERMA (10:09)
[2023-08-10 10:12] LABS: Amphetamine Screen Urine Not Detected (Not Detect); Barbiturates, Urine Not Detected (Not Detect); Benzodiazepines Screen Urine Not Detected (Not Detect); Cannabinoid Screen Urine POSITIVE (Not Detect); Cocaine Screen Urine Not Detected (Not Detect); Fentanyl, urine Not Detected (Not Detect); Opiate Screen Urine Not Detected (Not Detect); Phencyclidine Screen Urine Not Detected (Not Detect)
[2023-08-10 10:18] LABS: Alanine Aminotransferase 23 U/L (0-31); Albumin Level 4.5 g/dL (3.5-5.0); Alkaline Phosphatase 81 U/L (39-117); Anion Gap 17 (12-20); Aspartate Amino Transferase 30 U/L (5-31); Bilirubin Direct < 0.2 mg/dL (0.0-0.5); Bilirubin Total 0.2 mg/dL (0.0-1.0); Blood Urea Nitrogen 4 mg/dL (9-16); Calcium 9.3 mg/dL (8.4-10.2); Carbon Dioxide 22 mmol/L (22-29); Chloride 104 mmol/L (96-108); Creatinine Clr Calc Pharmacy 127.6; Estimated Glomerular Filt Rate > 60; Ethanol 219 mg/dL; Glucose Random 113 mg/dL (60-115); Potassium 3.9 mmol/L (3.3-5.1); Sodium 139 mmol/L (135-145)
[2023-08-10] MEDS: Ondansetron ODT 4 MG TAB.RAPDIS TRANSLINGU (10:33)
[2023-08-10 10:36] LABS: UPreg QC Valid YES; Urine Pregnancy NEGATIVE (NEGATIVE)
[2023-08-10 11:11] VITALS: BP 101/57; PULSE 103; RESP 16; TEMP 36.9; O2SAT 100
--- NOTE | 2023-08-10 11:12 | MHC.RECOVSUP ---
Addendum entered by Fredrick Greco 08/10/23 14:14: ATS bed search has been exhausted, pt provided recovery resources to follow up from the community. Original Note: Met with pt in ED22 who is here for SAIRA. Pt reports drinking about 1-2 pints 2-3 times a week and has never been to treatment or had recovery assistance before. Pt is open to having a recovery operator and would like ATS at this time. ATS bed search in progress.
== END 2023-08-10 14:32 | disposition home or self-care (01) ==
PROVIDERS: Nurse Practitioner Family; Emergency Provider Emergency Medicine Emergency Medical Services
DX: F10.220 Alcohol dependence with intoxication, uncomplicated (principal); Y90.7 Blood alcohol level of 200-239 mg/100 ml; F17.210 Nicotine dependence, cigarettes, uncomplicated
CPT/HCPCS: 36415; 80048; 80076; 80307; 81025; 85025; 99284

== ENCOUNTER 2023-08-11 00:56 | Observation (INO) | payer OTHER, SELFPAY ==
[2023-08-11 01:37] VITALS: PULSE 115; RESP 27; O2SAT 100; BMI 30.2
--- NOTE | 2023-08-11 02:58 | ED.ALCOHOL ---
HPI - Alcohol General Chief Complaint: ETOH/Substance Use Stated Complaint: Withdrawals Time Seen by Provider: 08/11/23 02:25 Source: patient Mode of arrival: ambulatory Limitations: no limitations History of Present Illness HPI narrative: 27-year-old female with no known medical history of present to the ER with concern of alcohol withdrawal and seeking detox for alcohol patient stated that she is feeling very anxious and feels palpitation. Patient usually binge drinking for several days. Patient was seen for similar symptoms in the ED this morning returned today for worsening of her symptoms patient stated that she had to drink 2 nebs before coming to the emergency room because her symptoms was intolerable. Related Data Allergies Allergy/AdvReac Type Severity Reaction Status Date / Time No Known Allergies Allergy Unverified 06/15/20 16:32 [No Known Allergies*] Review of Systems Review of Systems: all other systems are reviewed and are negative Constitutional: Reports as per HPI and Reports no additional constitutional complaints Eyes: Reports as per HPI and Reports no additional eye complaints Reports system reviewed and no additional complaints, except as documented Cardiovascular: Reports as per HPI and Reports no additional cardiovascular complaints Respiratory: Reports as per HPI and Reports no additional respiratory complaints Gastrointestinal: Reports as per HPI and Reports no additional gastrointestinal complaints Genitourinary: Reports no additional female genitourinary complaints Musculoskeletal: Reports no additional musculoskeletal complaints Skin/Breast: Reports system reviewed and no additional complaints, except as docu Psychiatric: Reports no additional psychiatric complaints Endocrine: Reports no additional endocrine complaints Hematologic/Lymphatic: Reports no additional hematologic/lymphatic complaints Allergic/Immunologic: Reports no additional allergic/immunologic complaints Reports system reviewed and no additional complaints, except as documented and Reports Abnormal speech present [facility] Social History Social History Alcohol intake: current Alcohol intake frequency: 3 or more drinks per day Alcohol type: hard liquor Smoked in Last 30 Days: Yes Substance Use Type: Marijuana Advance Directives: No Advance Directives Information Provided: Yes Physical Exam ED Vital Signs: Vital Signs - 24 hr 08/11/23 01:37 Pulse Rate 115 H Respiratory Rate 27 H Pulse Oximetry 100 Oxygen Delivery Method Room Air BMI result Body Mass Index 274.9 Vital signs have been reviewed and appear to be correct. Blood pressure elevated. Heart rate elevated. Respiratory rate normal. Temperature normal. Oxygen saturation normal. Appearance: Alert. anxious,Oriented X3. No acute distress. Head: Normal external exam. Normocephalic. Atraumatic. No Núñez signs noted. No raccoon eyes noted Eyes: PERRLA. EOMI. Conjunctiva and sclera normal. Eyelids normal. ENT: TM's Normal. Pharynx normal. Uvula midline. Moist mucous membranes. No trismus noted. No drooling noted. No muffled voice noted. Neck: Normal inspection. Neck supple. FROM. No adenopathy. Thyroid Normal. No meningeal signs. No neck mass noted. CVS: elevated heart rate and rhythm. Heart sound normal. No murmurs noted. Pulses normal throughout. Respiratory: No respiratory distress. Painless inspiration. Breath sounds normal. No wheezes/rales/rhonchi noted. Chest nontender. No accessory muscle usage noted or decreased air movement noted. Abdomen: Soft and nontender. Bowel sounds normal in all 4 quadrants. No distention noted. No organomegaly noted. No visible injury noted. Back: No CVA tenderness. Full range of motion noted. Skin: Skin warm and dry. Normal skin color. Normal skin turgor. No rashes/lesions/lacerations noted. Extremities: No lower extremity edema. Extremities exhibit normal range of motion. Extremities nontender. Neuro: Oriented X 3. Cranial nerve exam: II-XII are grossly intact No motor deficit. No sensory deficit. Reflexes normal. Course Reevaluation(s) Reevaluation #1: 27-year-old female was chronic problem was drinking alcohol patient is concern of alcohol withdrawal patient is tachycardic appears very anxious with involuntary tremors CIWA score is 15. Will start the patient on phenobarb for withdrawal symptoms Time: 03:01 Medical Decision Making Differential Diagnosis Differential Diagnoses: The differential diagnosis associated with the presentation includes ( electrolyte abnormality, dehydration, alcohol withdrawal, severe anemia.) Admission/Observation Consideration of admission/observation: Escalation of care including admission/observation considered Consult Healthcare Provider Management of the patient was discussed with: Hospitalist ( Dr. saldana) Discharge Plan Discharge Clinical Impression: Alcohol withdrawal syndrome Patient Disposition: Admitted As Inpatient
[2023-08-11 03:18] VITALS: BP 143/89; PULSE 101; RESP 12; TEMP 36.9; O2SAT 98
--- NOTE | 2023-08-11 03:18 | P.HPHOSP_ITS ---
History of Present Illness Date of Service: 08/11/23 Chief Complaint: Alcohol withdrawal This is a 27-year-old female with pertinent history of alcohol use disorder, marijuana use disorder who presents to the emergency department for concerns of alcohol withdrawal. Patient states that she has been drinking about one L of whiskey for the last 2-3 days. Her last drink was couple of hours prior to presentation. She has had alcohol withdrawals before but never been admitted for the same. No history of alcohol withdrawal seizures. No history of DTs. Patient is complaining of restlessness, anxiety, nausea, sweating and tremors. No fever, chills, chest discomfort, abdominal pain, shortness of breath, palpi tations, changes in urinary or bowel habits. In the emergency department, patient was initiated on phenobarb protocol Review of Systems Constitutional: Constitutional: Reports no additional constitutional complaints and Reports excessive sweating Cardiovascular: Cardiovascular: Reports no additional cardiovascular complaints Respiratory: Respiratory: Reports no additional respiratory complaints Gastrointestinal: Gastrointestinal: Reports no additional gastrointestinal complaints Genitourinary: Genitourinary: Reports no additional female genitourinary complaints Neurologic: Reports tremor(s) Psychiatric: Psychiatric: Reports anxiety Endocrine: Endocrine: Reports excessive sweating [facility] Medical History Alcohol use disorder Pertinent family history: No family history of early CAD Social History Alcohol intake: current Alcohol intake frequency: 3 or more drinks per day Alcohol type: hard liquor Smoked in Last 30 Days: Yes Substance Use Type: Marijuana Advance Directives: No Advance Directives Information Provided: Yes Meds Allergies Allergy/AdvReac Type Severity Reaction Status Date / Time No Known Allergies Allergy Unverified 06/15/20 16:32 [No Known Allergies*] Active Medications: Current Medications Pharmacy Consult (Consult Rx Etoh Phenob Im/Po) 1 each MISCELLANE ONCE PRN; Protocol PRN Reason: Consult order Physical Exam Vital Signs and Narrative: Vital Signs: Last Vital Signs Pulse 115 H 08/11/23 01:37 Resp 27 H 08/11/23 01:37 Pulse Ox 100 08/11/23 01:37 O2 Del Method Room Air 08/11/23 01:37 BMI result Body Mass Index 274.9 Young female lying in bed in no distress Neck supple, no JVD Tachycardic with regular rhythm, S1-S2 heard Regular breath sounds bilaterally, no wheezing or crackles appreciated Abdomen soft nontender, no guarding, no rigidity Patient is awake, alert and oriented to self, place, time and person ; no focal motor deficit Psych: Anxious No pedal edema Assessment and Plan (1) Alcohol withdrawal syndrome: Status: Acute Plan This is a 27-year-old female with pertinent history of alcohol use disorder, marijuana use disorder who presents to the emergency department for concerns of alcohol withdrawal. #. Alcohol use disorder, with concerns for withdrawal: Initiated on phenobarb protocol. Resuscitating with IV crystalloids. Initiated thiamine. Consulting Addiction Team, appreciate assistance. Folate levels pending. Monitor CIWA DVT prophylaxis: None. Patient is ambulatory Full code Quality Stroke Does the patient have a stroke diagnosis?: No VTE Prior VTE?: No VTE Risk Level:: Medical - low VTE Device Contraindication: Treatment Not Indicated VTE Drug Contraindication: Treatment Not Indicated
[2023-08-11] MEDS: 0.9 % Sodium Chloride 1,000 ML 999 ML IV (04:16)
[2023-08-11] MEDS: Thiamine HCL 100 MG in 0.9 % Sodium Chloride 100 ML 202 MG IV (04:23)
[2023-08-11] MEDS: PHENobarbitaL sodium 130 MG/ML IM ONCE 156 MG IM (04:23)
--- NOTE | 2023-08-11 06:16 | PC.NURSE ---
pt is requesting to be discharged; states she is unable to get out of work and is afraid of losing her job. this RN messaged .
[2023-08-11 06:19] LABS: Basophils Absolute Auto 0.1 X10*3/uL (0.0-0.2); Basophils Percent Auto 0.7 % (0-2); Eosinophils Percent Auto 0.2 % (0-4); Hematocrit 43.8 % (37.0-47.0); Hemoglobin 14.4 g/dl (12.0-16.0); Imm Gran Abs Auto 0.06 X10*3/uL (0.00-0.03); Imm Gran Pct Auto 0.6 % (0.0-0.4); Lymphocytes Absolute Auto 2.4 X10*3/uL (1.2-4.9); MANUAL DIFF FLAG NO; Mean Corpuscular HGB Conc 32.9 g/dl (31.0-35.0); Mean Corpuscular Hemoglobin 28.6 pg (27.0-33.0); Mean Corpuscular Volume 87.1 fL (80.0-98.0); Mean Platelet Volume 9.1 fL (9.4-12.3); Monocytes Absolute Auto 0.5 X10*3/uL (0.1-1.2); Monocytes Percent Auto 4.7 % (2-11); Neutrophils Absolute Auto 7.7 x10*3/uL (2.0-8.3); Neutrophils Percent Auto 71.8 % (45-73); Platelet Count 418 X10*3/uL (160-400); Red Blood Count 5.03 X10*6/uL (4.20-5.50); Red Cell Distribution Width 13.2 % (11.0-16.0); White Blood Count 10.7 X10*3/uL (4.8-10.8)
[2023-08-11 06:30] LABS: Anion Gap 19 (12-20); Blood Urea Nitrogen 4 mg/dL (9-16); Calcium 9.4 mg/dL (8.4-10.2); Carbon Dioxide 25 mmol/L (22-29); Chloride 98 mmol/L (96-108); Creatinine Clr Calc Pharmacy 114.8; Estimated Glomerular Filt Rate > 60; Glucose Random 77 mg/dL (60-115); Potassium 3.9 mmol/L (3.3-5.1); Sodium 138 mmol/L (135-145)
[2023-08-11 07:09] LABS: Folate 4.4 ng/mL (> or = 4.0); Vitamin B12 382 pg/mL (200-900)
[2023-08-11 07:17] VITALS: BP 150/90; PULSE 100; RESP 16; TEMP 36.8; O2SAT 98
--- NOTE | 2023-08-11 07:18 | PC.NURSE ---
this nurse took over care for pt at 7am, patient a&ox3, vss, ciwa 0, pt requesting discharge as inpt, per report night hospitalist is passing off to days to discharge, pt is aware of this upon speaking to her this morning, call patrick within reach, will continue to monitor
[2023-08-11] MEDS: 0.9 % Sodium Chloride Flush 3 ML SYRINGE IVFLUSH (07:19)
--- NOTE | 2023-08-11 07:59 | PM.EVENT ---
Event Note Date of Service: 08/11/23 Event Note: patient left AMA without being seen Time Spent With Patient Time: Total time managing care of this patient today ____ minutes.
--- NOTE | 2023-08-11 08:06 | PC.NURSE ---
pt became impatient waiting for hospitalist to come see her for a formal discharge, pt stated take this iv out I have to go this nurse removed the patients IV, it was explained to her that she is leaving against medical advice if she doesnt wait for a formal discharge from the provider, the patient stated my ride is here I need to go to work this nurse removed the IV and notified the provider to do AMA discharge, pt refused to wait for paperwork and discharged on her own. Pt was a&ox3, ambulated with a steady gait upon her departure, CIWA was 0.
--- NOTE | 2023-08-11 08:11 | PC.NURSE ---
dr rossi was notified of patients departure
--- NOTE | 2024-05-05 10:08 | P.DS_ITS ---
DS: Providers Provider Date of Service: 08/11/23 Date of admission: 08/11/23 03:13 Date of discharge: 08/11/23 Primary care physician: None Physician Consults: 08/11/23 03:19 Addiction Medicine Routine Consulting Provider: An Chappell Reason for consultation: Alcohol use disorder DS: Diagnosis Discharge Diagnosis (1) Left against medical advice: Status: Acute (2) Alcohol withdrawal syndrome: Status: Resolved DS: Summary Hospital Course Hospital Course: HPI : This is a 27-year-old female with pertinent history of alcohol use disorder, marijuana use disorder who presents to the emergency department for concerns of alcohol withdrawal. Patient states that she has been drinking about one L of whiskey for the last 2-3 days. Her last drink was couple of hours prior to presentation. She has had alcohol withdrawals before but never been admitted for the same. No history of alcohol withdrawal seizures. No history of DTs. Patient is complaining of restlessness, anxiety, nausea, sweating and tremors. No fever, chills, chest discomfort, abdominal pain, shortness of breath, palpitations, changes in urinary or bowel habits. In the emergency department, patient was initiated on phenobarb protocol Hospital course: Patient was admitted overnight and initiated on phenobarb protocol. Thiamine was initiated. Patient left against medical advice without being seen by day team physician Status at Discharge Functional status at discharge: independent ambulation Overall status at discharge: other Time Attestation Discharge Coordination Time (in mins): 10 Quality: Safe Use of Opioids Does Pt have an Active Cancer Diagnosis on the Problem List?: No Quality: Stroke Does the patient have a stroke diagnosis?: No Physical Exam Vital Signs: Vital Signs: Last Vital Signs Temp 98.2 F 08/11/23 07:17 Pulse 100 08/11/23 07:17 Resp 16 08/11/23 07:17 BP 150/90 H 08/11/23 07:17 Pulse Ox 98 08/11/23 07:17 O2 Del Method Room Air 08/11/23 07:17 BMI result Body Mass Index 30.2 Young female lying in bed in no distress Neck supple, no JVD Tachycardic with regular rhythm, S1-S2 heard Regular breath sounds bilaterally, no wheezing or crackles appreciated Abdomen soft nontender, no guarding, no rigidity Patient is awake, alert and oriented to self, place, time and person ; no focal motor deficit Psych: Anxious No pedal edema DS: Data Data Completed and Pending Completed studies during hospitalization [Text1]: Procedures Detoxification Services for Substance Abuse Treatment (08/20/23) Discharge Plan Discharge Anticipated Discharge Date/Time: 08/11/23 08:00 Patient Disposition: Left Against Medical Advice Referrals: Physician,None [Primary Care Provider] - 1 Week Discharge Medications: No Action naltrexone 50 mg tablet 50 mg PO DAILY Qty: 30 0RF Rx Instructions: Take 1/2 tab x 3 days and advance to full tab if tolerated well lorazepam [Ativan] 1 mg tablet 1 mg PO TID PRN (Reason: alcohol withdrawal) Qty: 10 0RF ashwagandha root extract 300 mg Capsule 600 mg PO BID PRN (Reason: Anxiety) naltrexone 50 mg tablet 50 mg PO DAILY Qty: 30 0RF Rx Instructions: 1/2 tab x 2 days, then full tab. Discharge Orders: Discharge Order (Routine); Ordered 08/11/23 Ordered By: Luis Alberto Tellez Diet: Regular diet Activity on Discharge: As tolerated Print Language: [place] Care Plan Goals: Follow-up with PCP Health Concerns: Alcohol use disorder Plan of Treatment: left AMA Assessment: As above Discharge Date/Time: 08/11/23 08:13
== END 2023-08-11 08:13 | disposition left against medical advice (07) ==
LOC: HO.ED 03:03 → HO.EDOVER 03:20
PROVIDERS: Admitting Provider Student in an Organized Health Care Education/Training Program; Emergency Provider Emergency Medicine; Visit Provider Internal Medicine
DX: F10.939 Alcohol use, unspecified with withdrawal, unspecified (principal); F12.90 Cannabis use, unspecified, uncomplicated; Z53.29 Procedure and treatment not carried out because of patient's decision for other reasons
CPT/HCPCS: 36415; 80048; 82607; 82746; 85025; 96365; 96372; 99222; 99284; 99285; J2560; J3411

== ENCOUNTER → 2023-08-11 03:13 | Outpatient (BNV) | payer OTHER, SELFPAY | PROVIDERS: Admitting Provider Student in an Organized Health Care Education/Training Program; Emergency Provider Emergency Medicine; Visit Provider Student in an Organized Health Care Education/Training Program | DX: F10.939 Alcohol use, unspecified with withdrawal, unspecified (principal); Z53.29 Procedure and treatment not carried out because of patient's decision for other reasons | CPT/HCPCS: 99221; 99499 ==

== ENCOUNTER → 2023-08-11 03:13 | Outpatient (BNV) | payer OTHER, SELFPAY | PROVIDERS: Admitting Provider Student in an Organized Health Care Education/Training Program; Emergency Provider Emergency Medicine; Visit Provider Student in an Organized Health Care Education/Training Program | DX: Z53.29 Procedure and treatment not carried out because of patient's decision for other reasons (principal); F10.939 Alcohol use, unspecified with withdrawal, unspecified | CPT/HCPCS: 99499 ==

== ENCOUNTER 2023-08-19 14:46 | Emergency (ER) | payer OTHER, SELFPAY ==
[2023-08-19 16:13] VITALS: BP 137/97; PULSE 150; RESP 20; TEMP 36.6; O2SAT 98; BMI 26.4
--- NOTE | 2023-08-19 16:39 | ED.ALCOHOL ---
HPI - Alcohol General Chief Complaint: ETOH/Substance Use Stated Complaint: Alcohol withdrawals Related Data Allergies Allergy/AdvReac Type Severity Reaction Status Date / Time No Known Allergies Allergy Unverified 06/15/20 16:32 [No Known Allergies*] [facility] Past Medical History Medical History Alcohol use disorder Social History Alcohol intake: current Alcohol intake frequency: 3 or more drinks per day Alcohol type: hard liquor Patient Tobacco Use Status: Current everyday Tobacco user Substance Use Type: Marijuana Physical Exam ED Vital Signs: Vital Signs - 24 hr 08/19/23 16:13 Temperature 97.8 F Pulse Rate 150 H Respiratory Rate 20 Blood Pressure 137/97 H Pulse Oximetry 98 Oxygen Delivery Method Room Air BMI result Body Mass Index 26.4 Course Course Course Narrative: This is an RME: Additional HPI, ROS, PE not included below will be deferred to primary provider. This is a 27-year-old female, with a history of alcohol abuse, presenting to the emergency department for alcohol withdrawal. She states that she drinks 2 pt every 3 days. Last drink was 1 hour prior to arrival admits to drinking a total of 2 pt today. Stating she is feeling anxious, nauseous. Pulse 150, blood pressure 137/97. No history of alcohol withdrawal seizures. Appears clinically intoxicated. Plan: Labs, UA, further ER evaluation needed.
--- NOTE | 2023-08-19 20:20 | PC.NURSE ---
This RN noted pts triage HR to be elevated at 150 bpm. Pt called in the [facility] with no response. This RN calling pts cell phone with no answer and emergency contact with no answer. Per triage tech, pt has not been in the WR since 1700.
--- NOTE | 2023-08-19 20:26 | MHC.EDTECH ---
The patient has been called 5 times since 1699. Patient was last called at 2019 with no response.
--- NOTE | 2023-08-19 20:51 | PC.NURSE ---
This RN contacting [facility] to do a well being check.
== END 2023-08-19 20:20 | disposition left against medical advice (07) ==
PROVIDERS: Emergency Provider Emergency Medicine
DX: F10.239 Alcohol dependence with withdrawal, unspecified (principal); Y90.0 Blood alcohol level of less than 20 mg/100 ml
CPT/HCPCS: 99281

== ENCOUNTER 2023-08-19 21:24 | Inpatient (IN) | payer OTHER, SELFPAY ==
--- NOTE | 2023-08-19 | ECG_ITS ---
Test Reason : TACHYCARDIC Blood Pressure : / mmHG Vent. Rate : 093 BPM Atrial Rate : 093 BPM P-R Int : 112 ms QRS Dur : 082 ms QT Int : 354 ms P-R-T Axes : 026 055 035 degrees QTc Int : 440 ms Normal sinus rhythm with sinus arrhythmia Normal ECG Heart rate has increased Referred By: Generic ED Physician Electronically Signed By:SUSANNAH ÁLVAREZ MD
[2023-08-19 22:31] VITALS: BP 141/98; PULSE 126; RESP 20; TEMP 36.9; O2SAT 98; BMI 28.3
[2023-08-19 22:59] LABS: Hematocrit 47.2 % (37.0-47.0); Hemoglobin 15.7 g/dl (12.0-16.0); Mean Corpuscular HGB Conc 33.3 g/dl (31.0-35.0); Mean Corpuscular Hemoglobin 28.2 pg (27.0-33.0); Mean Corpuscular Volume 84.9 fL (80.0-98.0); Mean Platelet Volume 8.5 fL (9.4-12.3); Platelet Count 360 X10*3/uL (160-400); Red Blood Count 5.56 X10*6/uL (4.20-5.50); Red Cell Distribution Width 13.3 % (11.0-16.0); White Blood Count 8.2 X10*3/uL (4.8-10.8)
[2023-08-19 23:12] LABS: Alanine Aminotransferase 40 U/L (0-31); Albumin Level 4.7 g/dL (3.5-5.0); Alkaline Phosphatase 96 U/L (39-117); Anion Gap 18 (12-20); Aspartate Amino Transferase 42 U/L (5-31); Bilirubin Total 0.3 mg/dL (0.0-1.0); Blood Urea Nitrogen 5 mg/dL (9-16); Calcium 9.4 mg/dL (8.4-10.2); Carbon Dioxide 26 mmol/L (22-29); Chloride 99 mmol/L (96-108); Creatinine Clr Calc Pharmacy 111.3; Estimated Glomerular Filt Rate > 60; Ethanol 196 mg/dL; Glucose Random 118 mg/dL (60-115); Potassium 3.5 mmol/L (3.3-5.1); Sodium 139 mmol/L (135-145); Total Protein 8.5 g/dL (6.5-8.0)
--- NOTE | 2023-08-19 23:22 | ED_ITS ---
HPI - Alcohol General Chief Complaint: ETOH/Substance Use Stated Complaint: Withdrawls Time Seen by Provider: 08/19/23 23:18 Source: patient Mode of arrival: ambulatory Limitations: no limitations History of Present Illness HPI narrative: 27-year-old female history of alcohol abuse presenting with concerns that she may be in withdrawal, patient reports she drinks 1-2 pt of cognac when she decides to drink, she reports she does not drink daily however she does drink frequently and when she does drink she drinks heavily. She reports anxiety, diaphoresis, tremors, head fullness, nausea and overall feeling of unwell. Denies drugs, suicidal and homicidal ideation. Denies chest pain, shortness of breath, vomiting, diarrhea, abdominal pain Related Data Allergies Allergy/AdvReac Type Severity Reaction Status Date / Time No Known Allergies Allergy Unverified 06/15/20 16:32 [No Known Allergies*] Review of Systems 2 Review of Systems: Constitutional : No Weight loss, No Fever, No Chills, No Fatigue, No Malaise ENT/Mouth : No sore throat, No Rhinorrhea Eyes: No Eye Pain, No Swelling, No Redness Cardiovascular : No Chest Pain, No SOB, No Dyspnea on Exertion, No Orthopnea, No Edema, No Palpitations Respiratory : No Cough, No Sputum, No Wheezing Gastrointestinal : No Nausea, No Vomiting, No Diarrhea, No Constipation, No abdominal Pain, No Hematochezia, No Melena Genitourinary : No Dysuria, No Urinary Frequency, No Hematuria, Musculoskeletal : No joint pain, No Myalgias, No Joint Swelling Skin : No Skin Lesions, No rash Neuro : No Weakness, No Numbness, No Dizziness, + Headache Psych : + Anxiety/Panic, No Depression All other systems reviewed and are negative Yes all other systems are reviewed and are negative [facility] Past Medical History Attestation statement: The following information was validated with the patient. Source: old records reviewed and nursing notes reviewed Medical History Alcohol use disorder Social History Alcohol intake: current Alcohol intake frequency: 0-2 drinks per day Alcohol type: hard liquor Patient Tobacco Use Status: Current everyday Tobacco user Substance Use Type: Marijuana Advance Directives: No Advance Directives Information Provided: No Physical Exam ED Vital Signs: Vital Signs - 24 hr 08/19/23 22:31 Temperature 98.4 F Pulse Rate 126 H Respiratory Rate 20 Blood Pressure 141/98 H Pulse Oximetry 98 Oxygen Delivery Method Room Air BMI result Body Mass Index 28.3 vss Appearance: Alert.? Oriented X3.? No acute distress.? Head: Normocephalic, atraumatic, no step-offs or deformities Eyes: Pupils equal, round and reactive to light.? ENT: Pharynx normal.??No tongue fasciculations Neck: Normal inspection.? Neck supple.? CVS: Normal heart rate and rhythm.? Pulses normal.? Respiratory: No respiratory distress.? Breath sounds normal.? Abdomen: Soft and nontender.? Skin: Skin warm and dry.? Normal skin color.? Normal skin turgor.? Extremities: No lower extremity edema.? No calf ttp. 5/5 strength to bilateral upper and lower extremities no asterixis. Back: No midline tenderness, no C-spine tenderness, full range of motion, no CVA tenderness bilaterally Neuro: Oriented X 3.? No motor deficit.? No sensory deficit. CN 2-12 intact CIWA -- 5 Course Reevaluation(s) Reevaluation #1: CBC appears to be within normal limits. Chemistry unremarkable however is noted to have slightly elevated transaminases likely secondary to alcohol abuse. No abdominal tenderness to palpation on exam. Alcohol level 196, urine toxicology pending. Ativan will be given to increased threshold. Will continue to monitor Time: 23:30 Reevaluation #2: Patient feeling slightly better however still tachycardic and states she just not feeling right. Plan is for hospital admission will initiate phenobarbital protocol. Will put her on seizure precautions Time: 01:01 Medical Decision Making Medical Decision Making [facility] Narrative: 27 year old female presents with concern she may be in alcohol withdrawal last drink was 16:00. Physical exam benign CIWA- 4 Likely acute w/drawl, will rule out polysubstance, and electrolyte abnormalities. NO signs of DT no signs of a hepatic encephalopathy she Plan- lab, ciwa q4h, seizure precautions, Ativan to increase seizure threshold Differential Diagnosis Differential Diagnoses: The differential diagnosis associated with the presentation includes Likely acute w/drawl, will rule out polysubstance, and electrolyte abnormalities. NO signs of DT no signs of hepatic encephalopathy Admission/Observation Consideration of admission/observation: Escalation of care including admission/observation considered possible Lab Data MDM Lab Attestation statement: I reviewed the patient's lab results. 08/19/23 22:52 08/19/23 22:52 Labs: Lab Results 08/19/23 Range/Units 22:52 WBC 8.2 (4.8-10.8) X10*3/uL RBC 5.56 H (4.20-5.50) X10*6/uL Hgb 15.7 (12.0-16.0) g/dl Hct 47.2 H (37.0-47.0) % MCV 84.9 (80.0-98.0) fL MCH 28.2 (27.0-33.0) pg MCHC 33.3 (31.0-35.0) g/dl RDW 13.3 (11.0-16.0) % Plt Count 360 (160-400) X10*3/uL MPV 8.5 L (9.4-12.3) fL Absolute Nucleated RBC 0.000 (0.0-0.012) X10*3/uL Nucleated RBC % (auto) 0.0 (0.0-0.2) /100WBC Sodium 139 (135-145) mmol/L Potassium 3.5 (3.3-5.1) mmol/L Chloride 99 (96-108) mmol/L Carbon Dioxide 26 (22-29) mmol/L Anion Gap 18 (12-20) BUN 5 L (9-16) mg/dL Creatinine 0.67 (0.5-1.4) mg/dL Estim Creat Clear Calc 111.3 Estimated GFR > 60 Random Glucose 118 H (60-115) mg/dL Calcium 9.4 (8.4-10.2) mg/dL Total Bilirubin 0.3 (0.0-1.0) mg/dL AST 42 H (5-31) U/L ALT 40 H (0-31) U/L Alkaline Phosphatase 96 (39-117) U/L Total Protein 8.5 H (6.5-8.0) g/dL Albumin 4.7 (3.5-5.0) g/dL Ethyl Alcohol 196 mg/dL External Record Review External record reviewed: Inpatient record, Office record, Outpatient record, Prior outpatient labs, Prior outpatient radiology and Primary care record Medications Administered Discontinued Medications Generic Name Dose Route Start Last Admin Trade Name Freq PRN Reason Stop Dose Admin Lorazepam 1 mg 08/19/23 23:27 08/19/23 23:37 Lorazepam 1 Mg Tablet PO 08/19/23 23:28 1 mg ONCE ONE Administration Ondansetron HCl 4 mg 08/19/23 23:21 08/19/23 23:37 Ondansetron Hcl 4 Mg/2 Ml Vial IVPUSH 08/19/23 23:22 4 mg ONCE ONE Administration Critical Care Time Critical Care Time Critical Care Time: No Discharge Plan Discharge Clinical Impression: Alcoholic intoxication Patient Disposition: Admitted As Inpatient
[2023-08-19] MEDS: LORazepam 1 MG TABLET PO (23:37)
[2023-08-19] MEDS: ondansetron HCL 4 MG/2 ML VIAL IVPUSH (23:37)
--- NOTE | 2023-08-20 00:57 | PC.NURSE ---
Pt ca&ox4, no signs of distress. Pt denied pain. Pt resting comfortably plan of care ongoing.
--- NOTE | 2023-08-20 01:02 | P.HPHOSP_ITS ---
History of Present Illness Date of Service: 08/20/23 Chief Complaint: Alcohol withdrawal This is a 27-year-old female with pertinent history of alcohol use disorder, marijuana use disorder who presents to the emergency department for concerns of alcohol withdrawal. Of note, patient was admitted on 08/11 for alcohol withdrawal but left against medical advise. She is determined to stay this time as her symptoms are getting worse. Patient states her last drink was 16:00 prior to presentation. Has had a history of alcohol withdrawals in the past but no history of alcohol withdrawal seizures. No history of DTs. She endorses tremors, anxiety, sweating, nausea, nonbloody emesis since her last drink. No fever, chills, chest discomfort, palpitations, shortness of breath, abdominal pain, changes in urinary or bowel habits. In the emergency department, patient was initiated on phenobarb protocol Review of Systems 2 Constitutional: Constitutional: Reports fatigue and Reports lethargy Cardiovascular: Cardiovascular: Reports no additional cardiovascular complaints Respiratory: Respiratory: Reports no additional respiratory complaints Gastrointestinal: Gastrointestinal: Reports nausea and Reports vomiting Genitourinary: Genitourinary: Reports no additional female genitourinary complaints Neurologic: Reports tremor(s) Psychiatric: Psychiatric: Reports anxiety Endocrine: Endocrine: Reports fatigue PMFSH Medical History Alcohol use disorder Pertinent family history: No family history of early CAD Alcohol intake: current Alcohol intake frequency: 0-2 drinks per day Alcohol type: hard liquor Patient Tobacco Use Status: Current everyday Tobacco user Substance Use Type: Marijuana Advance Directives: No Advance Directives Information Provided: No Meds Allergies Allergy/AdvReac Type Severity Reaction Status Date / Time No Known Allergies Allergy Unverified 06/15/20 16:32 [No Known Allergies*] Active Medications: Current Medications Thiamine HCl 100 mg/ Sodium (Chloride) 101 mls @ 202 mls/hr IV ONCE ONE Stop: 08/20/23 01:28 Pharmacy Consult (Consult Rx Etoh Phenob Im/Po) 1 each MISCELLANE ONCE PRN; Protocol PRN Reason: Consult order Thiamine HCl (Thiamine Hcl 100 Mg Tablet) 100 mg PO DAILY KARLO Physical Exam 2 Vital Signs and Narrative: Vital Signs: Last Vital Signs Temp 98.4 F 11/21/23 22:31 Pulse 126 H 08/19/23 22:31 Resp 20 08/19/23 22:31 BP 141/98 H 08/19/23 22:31 Pulse Ox 98 08/19/23 22:31 O2 Del Method Room Air 08/19/23 22:31 BMI result Body Mass Index 28.3 Young female lying in bed in no distress Neck supple, no JVD Tachycardic with regular rhythm, S1-S2 heard Regular breath sounds bilaterally, no wheezing or crackles appreciated Abdomen soft nontender, no guarding, no rigidity Patient is awake, alert and oriented to self, place, time and person ; no focal motor deficit Psych: Anxious No pedal edema Results Labs 08/19/23 22:52 08/19/23 22:52 Labs: Laboratory Results - last 24 hr 08/19/23 22:52 MCV 84.9 MCH 28.2 MCHC 33.3 RDW 13.3 Plt Count 360 MPV 8.5 L Absolute Nucleated RBC 0.000 Nucleated RBC % (auto) 0.0 Anion Gap 18 Estim Creat Clear Calc 111.3 Estimated GFR > 60 Random Glucose 118 H Calcium 9.4 Total Bilirubin 0.3 AST 42 H ALT 40 H Alkaline Phosphatase 96 Total Protein 8.5 H Albumin 4.7 Ethyl Alcohol 196 Assessment and Plan (1) Alcohol withdrawal syndrome: Status: Acute Plan This is a 27-year-old female with pertinent history of alcohol use disorder, marijuana use disorder who presents to the emergency department for concerns of alcohol withdrawal. #. Alcohol use disorder, with concerns for withdrawal: Initiated on phenobarb protocol. Resuscitating with IV crystalloids. Initiated thiamine. Consulting Addiction Team, appreciate assistance. Folate levels normal during previous admission. Monitor CIWA #. Elevated transaminases likely in the setting of alcohol use: Outpatient follow-up with ultrasound DVT prophylaxis: None. Patient is ambulatory Full code Quality Stroke Does the patient have a stroke diagnosis?: No VTE Prior VTE?: No VTE Risk Level:: Medical - low VTE Device Contraindication: Treatment Not Indicated VTE Drug Contraindication: Treatment Not Indicated
[2023-08-20 01:25] LABS: Amphetamine Screen Urine Not Detected (Not Detect); Barbiturates, Urine POSITIVE (Not Detect); Benzodiazepines Screen Urine Not Detected (Not Detect); Cannabinoid Screen Urine POSITIVE (Not Detect); Cocaine Screen Urine Not Detected (Not Detect); Fentanyl, urine Not Detected (Not Detect); Opiate Screen Urine Not Detected (Not Detect); Phencyclidine Screen Urine Not Detected (Not Detect)
[2023-08-20] MEDS: Thiamine HCL 100 MG in 0.9 % Sodium Chloride 100 ML 202 MG IV (01:31)
[2023-08-20] MEDS: 0.9 % Sodium Chloride 1,000 ML 999 ML IV (01:35)
--- NOTE | 2023-08-20 01:36 | PC.NURSE ---
Pt medicated nov. Plan of care ongoing.
[2023-08-20] MEDS: PHENobarbitaL sodium 130 MG/ML IM ONCE 230 MG IM (02:25)
[2023-08-20] MEDS: PHENobarbitaL sodium 130 MG/ML VIAL IM Q3Hx2 173 MG IM ×2 (05:17→08:43)
[2023-08-20] MEDS: ondansetron HCL 4 MG/2 ML VIAL IVPUSH ×2 (05:26→13:17)
--- NOTE | 2023-08-20 05:29 | PC.NURSE ---
Pt ca&ox4, no signs of distress. Pt ambulated to the restroom with a steady gait. Pt medicated per nov. Pt requested and given water. Plan of care ongoing.
[2023-08-20 06:03] LABS: MANUAL DIFF FLAG NO
[2023-08-20 06:07] LABS: Basophils Absolute Auto 0.1 X10*3/uL (0.0-0.2); Basophils Percent Auto 0.7 % (0-2); Eosinophils Percent Auto 0.2 % (0-4); Hematocrit 45.3 % (37.0-47.0); Hemoglobin 14.8 g/dl (12.0-16.0); Imm Gran Abs Auto 0.03 X10*3/uL (0.00-0.03); Imm Gran Pct Auto 0.3 % (0.0-0.4); Lymphocytes Absolute Auto 2.5 X10*3/uL (1.2-4.9); Lymphocytes Percent Auto 29.2 % (20-40); Mean Corpuscular HGB Conc 32.7 g/dl (31.0-35.0); Mean Corpuscular Hemoglobin 27.8 pg (27.0-33.0); Mean Corpuscular Volume 85.2 fL (80.0-98.0); Monocytes Absolute Auto 0.7 X10*3/uL (0.1-1.2); Monocytes Percent Auto 7.8 % (2-11); Neutrophils Absolute Auto 5.3 x10*3/uL (2.0-8.3); Neutrophils Percent Auto 61.8 % (45-73); Platelet Count 357 X10*3/uL (160-400); Red Blood Count 5.32 X10*6/uL (4.20-5.50); Red Cell Distribution Width 13.4 % (11.0-16.0); White Blood Count 8.6 X10*3/uL (4.8-10.8)
[2023-08-20 06:13] VITALS: BP 137/85; PULSE 99; RESP 19; TEMP 36.8; O2SAT 99
[2023-08-20 06:22] LABS: Anion Gap 17 (12-20); Blood Urea Nitrogen 5 mg/dL (9-16); Calcium 9.3 mg/dL (8.4-10.2); Carbon Dioxide 24 mmol/L (22-29); Chloride 100 mmol/L (96-108); Creatinine Clr Calc Pharmacy 111.3; Estimated Glomerular Filt Rate > 60; Glucose Random 88 mg/dL (60-115); Potassium 3.5 mmol/L (3.3-5.1); Sodium 137 mmol/L (135-145)
[2023-08-20 07:43] VITALS: BP 139/89; PULSE 107; RESP 17; O2SAT 98
[2023-08-20] MEDS: 0.9 % Sodium Chloride Flush 3 ML SYRINGE IVFLUSH ×2 (08:43→15:11)
[2023-08-20] MEDS: Thiamine HCL 100 MG TABLET PO (08:43)
--- NOTE | 2023-08-20 09:00 | PHA.MEDREC ---
Pharmacy Consult ? Medication Reconciliation Pharmacy has completed the medication reconciliation. Patient states she only takes ashwaganda root as needed for anxiety, and that it helps better than the stuff they're giving me here. Let patient know to have someone bring it in if she wants it continued while in patient
[2023-08-20 09:06] VITALS: BP 138/93; PULSE 98; RESP 20; TEMP 37.2; O2SAT 97
--- NOTE | 2023-08-20 11:47 | PC.NURSE ---
assumed care of patient, patient resting quietly in bed, respirations equal and unlabored
--- NOTE | 2023-08-20 13:42 | MHC.CM.PN ---
DEUCE DELIVERED. PATIENT IS FROM HOME WITH PARTNER, [facility] - NO SERVICES, HERE WITH ETOH WITHDRAWAWL. DOES NOT HAVE A PCP, DECLINES ASSISTANCE. DOES NOT HAVE A HCP, PROVIDED EDUCATION, DECLINED TO COMPLETE AT THIS TIME. NO CONTACTS LISTED - PROVIDED INFORMATION FOR PARTNER ROSM[facility]UVENAL [phone]. DCP: GOAL IS HOME, SELF CARE, WILLING TO SPEAK WITH CARE TEAM RE: RESOURCES FOR ETOH, PARTNER TO TRANSPORT HOME.
[2023-08-20 14:39] VITALS: BMI 30.5
[2023-08-20 15:58] VITALS: BP 139/65; PULSE 69; RESP 18; TEMP 36.2; O2SAT 98
--- NOTE | 2023-08-20 16:37 | PM.EVENT ---
Event Note Date of Service: 08/20/23 Event Note: Pt seen and examined, admitted this morning with alcohol withdrawal, over all is feeling better with phenobarbital. Tachycardia, and anxiety have improved. Continue Phenobartal protocol, cessation discussed with her. Addiction med consulted as well Time Spent With Patient Time: Total time managing care of this patient today ____ minutes.
[2023-08-20] MEDS: hydrOXYzine HCL 10 MG TABLET PO (16:43)
[2023-08-20] MEDS: Dextrose 5 % and 0.45 % NaCl 1,000 ML 100 ML IVCONT (16:49)
--- NOTE | 2023-08-20 18:10 | PC.NURSE ---
Pt wanting to leave AMA, education given and patient deciding to stay inpatient.
[2023-08-20] MEDS: PHENobarbitaL 30 MG TABLET PO (19:27)
[2023-08-20 20:00] VITALS: BP 137/88; PULSE 74; RESP 18; TEMP 37; O2SAT 99
--- NOTE | 2023-08-20 21:34 | PC.NURSE ---
Patient is alert and oriented, here for alcohol withdrawal.CIWA =1. States feels good and wants to leave AMA. Dr Hammond at bedside, patient still wants to leave. Is aware of risks of leaving AMA, IV removed, signed AMA form.
--- NOTE | 2023-08-25 19:43 | PM.DS ---
DS: Providers Provider Date of Service: 08/20/23 Date of admission: 08/20/23 08:45 Primary care physician: None Physician Consults: 08/20/23 00:59 Addiction Medicine Routine Consulting Provider: Addiction Covering Reason for consultation: Alcohol use disorder DS: Diagnosis Discharge Diagnosis (1) Alcohol withdrawal syndrome: Status: Acute DS: Summary Hospital Course Hospital Course: lcohol withdrawal This is a 27-year-old female with pertinent history of alcohol use disorder, marijuana use disorder who presents to the emergency department for concerns of alcohol withdrawal. Of note, patient was admitted on 08/11 for alcohol withdrawal but left against medical advise. She is determined to stay this time as her symptoms are getting worse. Patient states her last drink was 16:00 prior to presentation. Has had a history of alcohol withdrawals in the past but no history of alcohol withdrawal seizures. No history of DTs. She endorses tremors, anxiety, sweating, nausea, nonbloody emesis since her last drink. No fever, chills, chest discomfort, palpitations, shortness of breath, abdominal pain, changes in urinary or bowel habits. In the emergency department, patient was initiated on phenobarb protocol. Hospital course: Patient was admitted and was been treated for alcohol withdrawal and decided to leave [facility]. Final diagnoses: Alcohol withdrawal Time Attestation Discharge coordination time: Less than 30 minutes Quality: Safe Use of Opioids Does Pt have an Active Cancer Diagnosis on the Problem List?: No Quality: Stroke Does the patient have a stroke diagnosis?: No Physical Exam Vital Signs: Vital Signs: Last Vital Signs Temp 98.6 F 08/20/23 20:00 Pulse 74 08/20/23 20:00 Resp 18 08/20/23 20:00 BP 137/88 08/20/23 20:00 Pulse Ox 99 08/20/23 20:00 O2 Del Method Room Air 08/20/23 20:00 BMI result Body Mass Index 30.5 Discharge Plan Discharge Anticipated Discharge Date/Time: 08/20/23 19:46 Patient Disposition: Left Against Medical Advice Discharge Diagnosis: alcohol withdrawal Referrals: Physician,None [Primary Care Provider] - 1 Week Discharge Medications: No Action ashwagandha root extract 300 mg Capsule 600 mg PO BID PRN (Reason: Anxiety) Discharge Orders: Discharge Order (Routine); Ordered 08/20/23 Ordered By: Laura Hammond Diet: Advance to usual diet Activity on Discharge: As tolerated Care Plan Goals: left ama Health Concerns: left ama Plan of Treatment: left ama Assessment: left ama Discharge Date/Time: 08/20/23 21:49
== END 2023-08-20 21:49 | disposition left against medical advice (07) | DRG 770 ==
LOC: HO.ED 08-20 01:03 → HO.EDOVER 08-20 01:27 → HO.S3 08-20 12:48
PROVIDERS: Admitting Provider Student in an Organized Health Care Education/Training Program; Emergency Provider Internal Medicine; Visit Provider Internal Medicine
DX: F10.929 Alcohol use, unspecified with intoxication, unspecified (principal); F10.939 Alcohol use, unspecified with withdrawal, unspecified; F17.210 Nicotine dependence, cigarettes, uncomplicated; Z71.6 Tobacco abuse counseling; Y90.6 Blood alcohol level of 120-199 mg/100 ml
CPT/HCPCS: 36415; 80048; 80053; 80307; 85025; 85027; 93005; 99285; J2405; J2560; J3411

== ENCOUNTER → 2023-08-19 22:53 | Outpatient (BNV) | payer OTHER, SELFPAY | PROVIDERS: Emergency Provider Internal Medicine; Visit Provider Student in an Organized Health Care Education/Training Program | DX: F10.939 Alcohol use, unspecified with withdrawal, unspecified (principal) | CPT/HCPCS: 99235; 99499 ==

== ENCOUNTER 2023-09-04 14:03 | Emergency (ER) | payer OTHER, SELFPAY ==
[2023-09-04 15:14] VITALS: BP 144/97; PULSE 116; RESP 18; TEMP 37.6; O2SAT 100; BMI 29.9
--- NOTE | 2023-09-04 15:37 | ED.GENADULT ---
HPI - General Adult General Chief complaint: Psychiatric Symptoms Stated complaint: Withdrawals Related Data Home Medications Medication Instructions Recorded Confirmed flora root extract 300 mg 600 mg PO BID PRN Anxiety 08/20/23 08/20/23 capsule Allergies Allergy/AdvReac Type Severity Reaction Status Date / Time No Known Allergies Allergy Unverified 06/15/20 16:32 [No Known Allergies*] PMF Past Medical History Medical History Alcohol use disorder Social History Social History Household Members: Significant Other Household Members Other:: 2 Housing: House Do you presently have visiting nurse or other home services: No Alcohol intake: current Alcohol intake frequency: 0-2 drinks per day Alcohol type: hard liquor Patient Tobacco Use Status: Current everyday Tobacco user Tobacco use type: Cigarette e-Cigarette/Vaping Use: Never Used Substance Use Type: Marijuana Advance Directives: No Advance Directives Information Provided: No service: No Physical Exam ED Vital Signs: Vital Signs - 24 hr 09/04/23 15:14 Temperature 99.7 F Pulse Rate 116 H Respiratory Rate 18 Blood Pressure 144/97 H Pulse Oximetry 100 Oxygen Delivery Method Room Air BMI result Body Mass Index 29.9 Course Course Course Narrative: This is an RME: Additional HPI, ROS, PE not included below will be deferred to primary provider. This is a 27-year-old female presenting to the emergency department for alcohol withdrawal. Last drink was at 5:00 a.m. this morning. Typically drinks a pt and a half a day. She has never been to detox. She is endorsing nausea. Tachycardic at 116 No history of alcohol withdrawal seizures. She has stopped drinking alcohol without any series consequences. Plan: Labs, further ER evaluation Reevaluation(s) Reevaluation #1: pt eloped prior to being evaluated. Medical Decision Making Lab Data 09/04/23 17:25 09/04/23 17:25 Labs: Lab Results 09/04/23 Range/Units 17:25 WBC 13.1 H (4.8-10.8) X10*3/uL RBC 5.14 (4.20-5.50) X10*6/uL Hgb 14.5 (12.0-16.0) g/dl Hct 44.4 (37.0-47.0) % MCV 86.4 (80.0-98.0) fL MCH 28.2 (27.0-33.0) pg MCHC 32.7 (31.0-35.0) g/dl RDW 13.2 (11.0-16.0) % Plt Count 404 H (160-400) X10*3/uL MPV 8.9 L (9.4-12.3) fL Immature Gran % (Auto) 0.3 (0.0-0.4) % Neut % (Auto) 73.9 H (45-73) % Lymph % (Auto) 19.8 L (20-40) % [place] % (Auto) 5.2 (2-11) % Eos % (Auto) 0.0 (0-4) % Baso % (Auto) 0.8 (0-2) % Lymph # (Auto) 2.6 (1.2-4.9) X10*3/uL [place] # (Auto) 0.7 (0.1-1.2) X10*3/uL Eos # (Auto) 0.0 (0.0-0.4) X10*3/uL Baso # (Auto) 0.1 (0.0-0.2) X10*3/uL Abs Immat Gran (auto) 0.04 H (0.00-0.03) X10*3/uL Absolute Neuts (auto) 9.7 H (2.0-8.3) x10*3/uL Absolute Nucleated RBC 0.000 (0.0-0.012) X10*3/uL Nucleated RBC % (auto) 0.0 (0.0-0.2) /100WBC Sodium 137 (135-145) mmol/L Potassium 3.7 (3.3-5.1) mmol/L Chloride 98 (96-108) mmol/L Carbon Dioxide 28 (22-29) mmol/L Anion Gap 15 (12-20) BUN 6 L (9-16) mg/dL Creatinine 0.70 (0.5-1.4) mg/dL Estim Creat Clear Calc 109.2 Estimated GFR > 60 Random Glucose 92 (60-115) mg/dL Calcium 9.7 (8.4-10.2) mg/dL Total Bilirubin 0.5 (0.0-1.0) mg/dL Direct Bilirubin 0.2 (0.0-0.5) mg/dL AST 34 H (5-31) U/L ALT 27 (0-31) U/L Alkaline Phosphatase 114 (39-117) U/L Total Protein 8.5 H (6.5-8.0) g/dL Albumin 4.7 (3.5-5.0) g/dL Ethyl Alcohol < 10 mg/dL Discharge Plan Discharge Clinical Impression: Alcohol use disorder Patient Disposition: Left W/O Completing Treatment Prescriptions: No Action ashwagandha root extract 300 mg Capsule 600 mg PO BID PRN (Reason: Anxiety) Interventions: [place]-Suicide Risk Severity Scale Last Done: 09/04/23 21:08 Discharge Date/Time: 09/04/23 21:08
[2023-09-04 17:31] LABS: MANUAL DIFF FLAG NO
[2023-09-04 17:36] LABS: Basophils Absolute Auto 0.1 X10*3/uL (0.0-0.2); Basophils Percent Auto 0.8 % (0-2); Hematocrit 44.4 % (37.0-47.0); Hemoglobin 14.5 g/dl (12.0-16.0); Imm Gran Abs Auto 0.04 X10*3/uL (0.00-0.03); Imm Gran Pct Auto 0.3 % (0.0-0.4); Lymphocytes Absolute Auto 2.6 X10*3/uL (1.2-4.9); Lymphocytes Percent Auto 19.8 % (20-40); Mean Corpuscular HGB Conc 32.7 g/dl (31.0-35.0); Mean Corpuscular Hemoglobin 28.2 pg (27.0-33.0); Mean Corpuscular Volume 86.4 fL (80.0-98.0); Mean Platelet Volume 8.9 fL (9.4-12.3); Monocytes Absolute Auto 0.7 X10*3/uL (0.1-1.2); Monocytes Percent Auto 5.2 % (2-11); Neutrophils Absolute Auto 9.7 x10*3/uL (2.0-8.3); Neutrophils Percent Auto 73.9 % (45-73); Platelet Count 404 X10*3/uL (160-400); Red Blood Count 5.14 X10*6/uL (4.20-5.50); Red Cell Distribution Width 13.2 % (11.0-16.0); White Blood Count 13.1 X10*3/uL (4.8-10.8)
[2023-09-04 17:52] LABS: Alanine Aminotransferase 27 U/L (0-31); Albumin Level 4.7 g/dL (3.5-5.0); Alkaline Phosphatase 114 U/L (39-117); Anion Gap 15 (12-20); Aspartate Amino Transferase 34 U/L (5-31); Bilirubin Direct 0.2 mg/dL (0.0-0.5); Bilirubin Total 0.5 mg/dL (0.0-1.0); Blood Urea Nitrogen 6 mg/dL (9-16); Calcium 9.7 mg/dL (8.4-10.2); Carbon Dioxide 28 mmol/L (22-29); Chloride 98 mmol/L (96-108); Creatinine Clr Calc Pharmacy 109.2; Estimated Glomerular Filt Rate > 60; Ethanol < 10 mg/dL; Glucose Random 92 mg/dL (60-115); Potassium 3.7 mmol/L (3.3-5.1); Sodium 137 mmol/L (135-145); Total Protein 8.5 g/dL (6.5-8.0)
--- NOTE | 2023-09-04 21:07 | PC.NURSE ---
Per TC, no SI/HI.
== END 2023-09-04 21:08 | disposition left against medical advice (07) ==
PROVIDERS: Physician Assistant Medical; Emergency Provider Emergency Medicine
DX: F10.988 Alcohol use, unspecified with other alcohol-induced disorder (principal); Y90.0 Blood alcohol level of less than 20 mg/100 ml; F41.9 Anxiety disorder, unspecified; Z79.899 Other long term (current) drug therapy; Z53.21 Procedure and treatment not carried out due to patient leaving prior to being seen by health care provider
CPT/HCPCS: 36415; 80048; 80076; 80307; 85025; 99283

== ENCOUNTER 2023-09-21 03:06 | Emergency (ER) | payer OTHER, SELFPAY ==
[2023-09-21 03:19] VITALS: BP 135/82; PULSE 109; RESP 16; TEMP 36.7; O2SAT 98; BMI 29.9
--- NOTE | 2023-09-21 05:11 | ED.ALCOHOL ---
HPI - Alcohol General Chief Complaint: ETOH/Substance Use Stated Complaint: withdrawls Time Seen by Provider: 09/21/23 05:06 Source: patient Mode of arrival: ambulatory Limitations: no limitations History of Present Illness HPI narrative: Patient alcoholic drinks frequently but not every day been drinking for last 3 days stopped At 16:00 yesterday also has anxiety afraid of withdrawal seizures as her sister gets withdrawal seizures but patient never had withdrawal seizures patient had stop drinking in the past for several days without any problem unable to sleep nauseated vomited 2 times Related Data Home Medications Medication Instructions Recorded Confirmed yulissaa root extract 300 mg 600 mg PO BID PRN Anxiety 08/20/23 08/20/23 capsule Previous Rx's Medication Instructions Recorded lorazepam 1 mg tablet (Ativan) 1 mg PO TID PRN alcohol withdrawal 09/21/23 #10 tabs Allergies Allergy/AdvReac Type Severity Reaction Status Date / Time No Known Allergies Allergy Verified 09/21/23 03:24 [No Known Allergies*] Review of Systems Review of Systems: Yes all other systems are reviewed and are negative PMFSH Past Medical History Medical History Alcohol use disorder Social History Social History Household Members: Significant Other Household Members Other:: 2 Housing: House Do you presently have visiting nurse or other home services: No Alcohol intake: current Alcohol intake frequency: a few times a week Alcohol type: hard liquor Patient Tobacco Use Status: Current everyday Tobacco user Tobacco use type: Cigarette Smoked in Last 30 Days: Yes e-Cigarette/Vaping Use: Never Used Use of substances other than those prescribed or required for medical reasons: Yes Substance Use Type: Marijuana Advance Directives: No Advance Directives Information Provided: No service: No Physical Exam ED Vital Signs: Vital Signs - 24 hr 09/21/23 03:19 09/21/23 05:17 09/21/23 06:34 Temperature 98.0 F 98.3 F Pulse Rate 109 H 75 79 Respiratory Rate 16 16 15 Blood Pressure 135/82 116/75 Pulse Oximetry 98 99 98 Oxygen Delivery Method Room Air Room Air Room Air 09/21/23 07:01 Temperature Pulse Rate 93 Respiratory Rate 18 Blood Pressure 119/71 Pulse Oximetry 98 Oxygen Delivery Method Room Air BMI result Body Mass Index 29.9 Appearance: Alert. Oriented X3. No acute distress. Anxious Eyes: PERRLA, No Nystagmus ENT: Pharynx normal. Oral Mucosa moist Neck: Normal inspection. Neck supple. CVS: Normal heart rate and rhythm. Pulses normal. Respiratory: No respiratory distress. Equal air entry bilateral, no wheezing/rales/rhonchi Abdomen: Soft flow move mild epigastric tenderness Bowel sounds are present, no mass palpable, no CVA tenderness Skin: Skin warm and dry. Normal skin color. Normal skin turgor. Extremities: No lower extremity edema. No calf tenderness Neuro: Oriented X 3. No motor deficit. Medical Decision Making Medical Decision Making MDM Narrative: Patient alcoholic with increased anxiety does not feel the need to go to detox at this time discharge patient home on Ativan Medications Administered Discontinued Medications Generic Name Dose Route Start Last Admin Trade Name Freq PRN Reason Stop Dose Admin Al Hydroxide/Mg Hydroxide 30 ml 09/21/23 05:11 09/21/23 05:30 Magnesium Hydrox/Alum Hydrox 30 Ml Oral.Susp PO 09/21/23 05:12 30 ml ONCE ONE Administration Lorazepam 2 mg 09/21/23 05:11 09/21/23 05:30 Lorazepam 1 Mg Tablet PO 09/21/23 05:12 2 mg ONCE ONE Administration Omeprazole 40 mg 09/21/23 05:11 09/21/23 05:30 Omeprazole 40 Mg Capsule.Dr PO 09/21/23 05:12 40 mg ONCE ONE Administration Ondansetron HCl 4 mg 09/21/23 05:11 09/21/23 05:29 Ondansetron Odt 4 Mg Tab.Rapdis TRANSLINGU 09/21/23 05:12 4 mg ONCE ONE Administration Discharge Plan Discharge Clinical Impression: Alcohol abuse Patient Disposition: Home, Self-Care Instructions: Abuse of Alcohol (ED) Additional Instructions: Stop drinking alcohol Ativan for anxiety and withdrawal as prescribed Follow detox if any concerns Prescriptions: New lorazepam [Ativan] 1 mg tablet 1 mg PO TID PRN (Reason: alcohol withdrawal) Qty: 10 0RF No Action ashwagandha root extract 300 mg Capsule 600 mg PO BID PRN (Reason: Anxiety) Interventions: ED Discharge Assessment Last Done: 09/21/23 07:02 Discharge Date/Time: 09/21/23 07:05
[2023-09-21 05:17] VITALS: PULSE 75; RESP 16; O2SAT 99
[2023-09-21] MEDS: Ondansetron ODT 4 MG TAB.RAPDIS TRANSLINGU (05:29)
[2023-09-21] MEDS: LORazepam 1 MG TABLET 2 MG PO (05:30)
[2023-09-21] MEDS: Omeprazole 40 MG CAPSULE.DR PO (05:30)
[2023-09-21] MEDS: Magnesium Hydrox/Alum Hydrox 30 ML ORAL.SUSP PO (05:30)
[2023-09-21 06:34] VITALS: BP 116/75; PULSE 79; RESP 15; TEMP 36.8; O2SAT 98
[2023-09-21 07:01] VITALS: BP 119/71; PULSE 93; RESP 18; O2SAT 98
== END 2023-09-21 07:05 | disposition home or self-care (01) ==
PROVIDERS: Emergency Provider Internal Medicine
DX: F10.10 Alcohol abuse, uncomplicated (principal)
CPT/HCPCS: 99283; 99284

== ENCOUNTER 2023-10-23 06:26 | Emergency (ER) | payer OTHER, SELFPAY ==
[2023-10-23 06:35] VITALS: BP 147/91; PULSE 115; RESP 18; TEMP 37.2; O2SAT 96; BMI 29.3
[2023-10-23 07:01] LABS: MANUAL DIFF FLAG NO
[2023-10-23 07:05] LABS: Basophils Absolute Auto 0.1 X10*3/uL (0.0-0.2); Basophils Percent Auto 0.6 % (0-2); Eosinophils Percent Auto 0.1 % (0-4); Hematocrit 43.7 % (37.0-47.0); Hemoglobin 14.6 g/dl (12.0-16.0); Imm Gran Abs Auto 0.05 X10*3/uL (0.00-0.03); Imm Gran Pct Auto 0.5 % (0.0-0.4); Lymphocytes Absolute Auto 1.8 X10*3/uL (1.2-4.9); Lymphocytes Percent Auto 18.2 % (20-40); Mean Corpuscular HGB Conc 33.4 g/dl (31.0-35.0); Mean Corpuscular Hemoglobin 28.5 pg (27.0-33.0); Mean Corpuscular Volume 85.4 fL (80.0-98.0); Mean Platelet Volume 9.2 fL (9.4-12.3); Monocytes Absolute Auto 0.5 X10*3/uL (0.1-1.2); Monocytes Percent Auto 5.3 % (2-11); Neutrophils Absolute Auto 7.5 x10*3/uL (2.0-8.3); Neutrophils Percent Auto 75.3 % (45-73); Platelet Count 287 X10*3/uL (160-400); Red Blood Count 5.12 X10*6/uL (4.20-5.50); Red Cell Distribution Width 14.4 % (11.0-16.0)
[2023-10-23 07:19] LABS: Alanine Aminotransferase 30 U/L (0-31); Albumin Level 4.6 g/dL (3.5-5.0); Alkaline Phosphatase 103 U/L (39-117); Anion Gap 18 (12-20); Aspartate Amino Transferase 33 U/L (5-31); Bilirubin Total 0.5 mg/dL (0.0-1.0); Blood Urea Nitrogen 8 mg/dL (9-16); Calcium 9.6 mg/dL (8.4-10.2); Carbon Dioxide 23 mmol/L (22-29); Chloride 97 mmol/L (96-108); Creatinine Clr Calc Pharmacy 104.4; Estimated Glomerular Filt Rate > 60; Ethanol 40 mg/dL; Glucose Random 95 mg/dL (60-115); Magnesium 1.7 mg/dL (1.6-2.6); Potassium 3.4 mmol/L (3.3-5.1); Sodium 135 mmol/L (135-145)
--- NOTE | 2023-10-23 07:34 | ED.GENADULT ---
HPI - General Adult General Chief complaint: ETOH/Substance Use Stated complaint: alcohol withdrawal Time Seen by Provider: 10/23/23 07:21 History of Present Illness HPI narrative: The patient is a 20-year-old female with a history of alcoholism. She comes to the hospital with some frequency for alcohol-related issues. She says that she was drinking yesterday and stopped at around 16:00. At around 23:00 last night the patient started to feel a sense of significant anxiety and unease. Ultimately she decided to come to the emergency room. She says that she took a shot of liquor before coming to the hospital. The patient has come to the hospital several times in the last year for alcohol-related symptoms. She Was hospitalized in July of 2023 for alcohol withdrawal symptoms. No fever, sweats, chills. Abdominal pain, nausea, vomiting. Related Data Home Medications Medication Instructions Recorded Confirmed ashstephaniedha root extract 300 mg 600 mg PO BID PRN Anxiety 08/20/23 08/20/23 capsule Previous Rx's Medication Instructions Recorded lorazepam 1 mg tablet (Ativan) 1 mg PO TID PRN alcohol withdrawal 09/21/23 #10 tabs naltrexone 50 mg tablet 50 mg PO DAILY #30 tabs 10/23/23 Allergies Allergy/AdvReac Type Severity Reaction Status Date / Time No Known Allergies Allergy Verified 10/23/23 06:35 [No Known Allergies*] Review of Systems Review of Systems: Yes all other systems are reviewed and are negative [facility] Past Medical History Medical History Alcohol use disorder Social History Social History Household Members: Significant Other Household Members Other:: 2 Housing: House Do you presently have visiting nurse or other home services: No Alcohol intake: current Alcohol intake frequency: 3 or more drinks per day Alcohol type: hard liquor Patient Tobacco Use Status: Current everyday Tobacco user Tobacco use type: Cigarette e-Cigarette/Vaping Use: Never Used Substance Use Type: Marijuana service: No Physical Exam ED Vital Signs: Vital Signs - 24 hr 10/23/23 06:35 10/23/23 08:39 Temperature 99.0 F 98.2 F Pulse Rate 115 H 88 Respiratory Rate 18 17 Blood Pressure 147/91 H 121/86 Pulse Oximetry 96 97 Oxygen Delivery Method Room Air Room Air BMI result Body Mass Index 29.3 Const Other: The patient is awake, alert, pleasant, cooperative. She does not appear in overt distress. HENMT Other: The face is symmetrical. Mucous membranes moist. Eyes Other: Pupils are round equal, conjunctivae are clear, extraocular movements intact Neck Neck: Yes no JVD Resp Effort & Inspection: normal respiratory effort Auscultation: clear to auscultation bilaterally Cardio Rate: tachycardic Rhythm: regular rhythm Heart sounds: S1 normal heart sound present and S2 normal heart sound present GI Other: Abdomen is soft and nontender Skin Other: skin is pale and dry Neuro Other: the patient is awake and alert. She does not appear obviously intoxicated or tremulous. She has a somewhat anxious affect. She is otherwise neurologically intact. Extrem Other: No peripheral edema. No calf swelling or tenderness. Medications Administered Discontinued Medications Generic Name Dose Route Start Last Admin Trade Name Freq PRN Reason Stop Dose Admin Chlordiazepoxide HCl 50 mg 10/23/23 07:33 10/23/23 07:41 Chlordiazepoxide Hcl 25 Mg Capsule PO 10/23/23 07:34 50 mg ONCE ONE Administration Chlordiazepoxide HCl 50 mg 10/23/23 10:43 10/23/23 10:58 Chlordiazepoxide Hcl 25 Mg Capsule PO 10/23/23 10:44 50 mg ONCE ONE Administration Medical Decision Making Medical Decision Making [facility] Narrative: The patient is a 28-year-old woman who comes with a complaint of anxiety after having had alcohol over the last few days. Her history suggests that she may have significant alcoholism with alcohol withdrawal symptoms but the patient indicates she is not actually a regular daily drinker but more of a sporadic drinker. She says that she lives alone and she sometimes feels anxious when she is by herself. She denies suicidality or any plans to harm herself in any way. At 1st the patient was given a dose of chlordiazepoxide. Ultimately the patient was seen by the recovery nurse. The patient will be discharged. She will be given a prescription for naltrexone. [facility]. Lab Data 10/23/23 06:56 10/23/23 06:56 Labs: Lab Results 10/23/23 Range/Units 06:56 WBC 10.0 (4.8-10.8) X10*3/uL RBC 5.12 (4.20-5.50) X10*6/uL Hgb 14.6 (12.0-16.0) g/dl Hct 43.7 (37.0-47.0) % MCV 85.4 (80.0-98.0) fL MCH 28.5 (27.0-33.0) pg MCHC 33.4 (31.0-35.0) g/dl RDW 14.4 (11.0-16.0) % Plt Count 287 D (160-400) X10*3/uL MPV 9.2 L (9.4-12.3) fL Immature Gran % (Auto) 0.5 H (0.0-0.4) % Neut % (Auto) 75.3 H (45-73) % Lymph % (Auto) 18.2 L (20-40) % [place] % (Auto) 5.3 (2-11) % Eos % (Auto) 0.1 (0-4) % Baso % (Auto) 0.6 (0-2) % Lymph # (Auto) 1.8 (1.2-4.9) X10*3/uL [place] # (Auto) 0.5 (0.1-1.2) X10*3/uL Eos # (Auto) 0.0 (0.0-0.4) X10*3/uL Baso # (Auto) 0.1 (0.0-0.2) X10*3/uL Abs Immat Gran (auto) 0.05 H (0.00-0.03) X10*3/uL Absolute Neuts (auto) 7.5 (2.0-8.3) x10*3/uL Absolute Nucleated RBC 0.000 (0.0-0.012) X10*3/uL Nucleated RBC % (auto) 0.0 (0.0-0.2) /100WBC Sodium 135 (135-145) mmol/L Potassium 3.4 (3.3-5.1) mmol/L Chloride 97 (96-108) mmol/L Carbon Dioxide 23 (22-29) mmol/L Anion Gap 18 (12-20) BUN 8 L (9-16) mg/dL Creatinine 0.72 (0.5-1.4) mg/dL Estim Creat Clear Calc 104.4 Estimated GFR > 60 Random Glucose 95 (60-115) mg/dL Calcium 9.6 (8.4-10.2) mg/dL Magnesium 1.7 (1.6-2.6) mg/dL Total Bilirubin 0.5 (0.0-1.0) mg/dL AST 33 H (5-31) U/L ALT 30 (0-31) U/L Alkaline Phosphatase 103 (39-117) U/L Total Protein 8.0 (6.5-8.0) g/dL Albumin 4.6 (3.5-5.0) g/dL Beta HCG, Quant < 2 mIU/mL Ethyl Alcohol 40 mg/dL Discharge Plan Discharge Clinical Impression: Anxiety, Alcohol use Patient Disposition: Home, Self-Care Additional Instructions: You have an appointment at [facility] next week on October 29 at 1:30PM. Please keep this appointment. I have sent a prescription for medication called naltrexone to your pharmacy. This is a medication that helps people feel less inclined to take alcohol. Please take half a tablet for the first 2 days (25 mg per half tablet). Then take a full tablet once a day. If at any point you are feeling sad or depressed and wished to speak to somebody confidentially you may contact the [facility] crisis line at [phone]. Return to the emergency department if worse. Prescriptions: No Action naltrexone 50 mg tablet 50 mg PO DAILY Qty: 30 0RF Rx Instructions: Take 1/2 tab x 3 days and advance to full tab if tolerated well lorazepam [Ativan] 1 mg tablet 1 mg PO TID PRN (Reason: alcohol withdrawal) Qty: 10 0RF ashwagandha root extract 300 mg Capsule 600 mg PO BID PRN (Reason: Anxiety) Referrals: [facility] [place] [facility] [Provider Group] (alcohol use) Interventions: ED Discharge Assessment Last Done: 10/23/23 11:04 Discharge Date/Time: 10/23/23 11:05
[2023-10-23] MEDS: chlordiazePOXIDE HCl 25 MG CAPSULE 50 MG PO ×2 (07:41→10:58)
[2023-10-23 08:05] LABS: HCG Quantitative < 2 mIU/mL
[2023-10-23 08:39] VITALS: BP 121/86; PULSE 88; RESP 17; TEMP 36.8; O2SAT 97
--- NOTE | 2023-10-23 11:06 | MHC.RECOVRN ---
Met with pt in ED 2 for recovery support after pt presented to the ED reporting alcohol withdrawal symptoms, last use 4 pm yesterday, not interested in ATS. Pt sitting in bed, awake, alert, easily engages in conversation, anxious. Pt reports hesitancy coming to the hospital due to past negative experiences, however, felt that she needed to come due to anxiety/withdrawal. Pt reports alcohol use, 1 pint daily x 2 days, prior to that pts last use around [place]. Pt reports binge drinking with periods of abstinence one month or longer. Pt reports that when she begins drinking it is difficult to stop. Pt reports hx withdrawal symptoms including nausea, tremors, anxiety, diaphoresis. Denies hx seizures/DTs. Pt has not been engaged in AUD tx in the past. Pt reports brief hospital admission in July. Pt reports family hx of AUD. Discussed recovery supports and options, including inpatient ATS. Pt is not interested in inpatient tx due to working signal timer. Discussed [facility], pt interested in naltrexone. Pt concerned regarding persistent anxiety. Discussed [facility], pt interested in initiating treatment. Pt provided with written resources. Discussed with provider, plan to send naltrexone and hydroxyzine rx. Pt has appt at the [facility] on 10/29 at 1:30PM. Pt aware of above, denies questions or concerns.
== END 2023-10-23 11:05 | disposition home or self-care (01) ==
PROVIDERS: Emergency Provider Emergency Medicine
DX: F10.239 Alcohol dependence with withdrawal, unspecified (principal); Y90.2 Blood alcohol level of 40-59 mg/100 ml; F41.1 Generalized anxiety disorder; F43.0 Acute stress reaction; Z79.899 Other long term (current) drug therapy; F17.210 Nicotine dependence, cigarettes, uncomplicated
CPT/HCPCS: 36415; 80053; 80307; 83735; 84702; 85025; 99284

== ENCOUNTER 2023-11-06 06:45 | Emergency (ER) | payer OTHER, SELFPAY ==
[2023-11-06 06:47] VITALS: BP 152/96; PULSE 101; RESP 18; TEMP 36.6; O2SAT 99; BMI 29.1
--- NOTE | 2023-11-06 07:01 | ED.ALCOHOL ---
HPI - Alcohol General Chief Complaint: ETOH/Substance Use Stated Complaint: alcohol withdrawal Time Seen by Provider: 11/06/23 06:56 Source: patient and old records reviewed Mode of arrival: ambulatory Limitations: no limitations History of Present Illness HPI narrative: 28 yo female with alcohol use disorder no priro seizures drinks about a pint and a half a day. Last drink about 3pm now feeling jittery and nauseated. She notes she drinks because she is bored. She has never gone to detox. Her sister has significant alcohol abuse history and her father is a recovering alcoholic. The patient would consider detox at this point as she thinks it is getting out of control. She was seen 2 weeks ago in the ED and DC on naltrexone but doesn't have an insurance card so she didn't fill it. complaint: alcohol withdrawal and desires rehab Last drink: Days (ago) (yesterday 3pm) Chronic alcohol use: Yes Previous visits for alcohol intoxication: Yes Recent trauma: No Associated symptoms: nausea and tremors Treatments prior to arrival: none Related Data Home Medications Medication Instructions Recorded Confirmed yahirdha root extract 300 mg 600 mg PO BID PRN Anxiety 08/20/23 08/20/23 capsule Previous Rx's Medication Instructions Recorded lorazepam 1 mg tablet (Ativan) 1 mg PO TID PRN alcohol withdrawal 09/21/23 #10 tabs naltrexone 50 mg tablet 50 mg PO DAILY #30 tabs 10/23/23 Allergies Allergy/AdvReac Type Severity Reaction Status Date / Time No Known Allergies Allergy Verified 11/06/23 06:47 [No Known Allergies*] Review of Systems Review of Systems: Constitutional : No Fever, No Chills ENT/Mouth : No Ear Pain, No Nasal Congestion, No sore throat Eyes: No Eye Pain, No Swelling, No Redness Cardiovascular : No Chest Pain, No SOB Respiratory : No Cough, No Sputum, No Dyspnea Gastrointestinal : pos Nausea, No Vomiting, No Diarrhea, No Hematochezia, No Melena Genitourinary : No Dysuria, No Urinary Frequency, No Hematuria Musculoskeletal : No Myalgias Skin : No Skin Lesions, No rash Neuro : No Weakness, No Numbness, No Paresthesias, No Dizziness, No Headache Psych : positive Anxiety, no Depression, no SI/HI Heme/Lymph: No Lymphadenopathy Endocrine : No Polyuria, No Polydipsia All other systems reviewed and are negative PMFSH Past Medical History Attestation statement: The following information was validated with the patient. Source: old records reviewed Medical History Alcohol use disorder Social History Social History Household Members: Significant Other Household Members Other:: 2 Housing: House Do you presently have visiting nurse or other home services: No Alcohol intake: current Alcohol intake frequency: 3 or more drinks per day Alcohol type: hard liquor Patient Tobacco Use Status: Current everyday Tobacco user Tobacco use type: Cigarette Smoked in Last 30 Days: No e-Cigarette/Vaping Use: Never Used Use of substances other than those prescribed or required for medical reasons: Yes Substance Use Type: Marijuana Substance Use Frequency: Weekly Advance Directives: No Advance Directives Information Provided: No Patient : No service: No Physical Exam ED Vital Signs: Vital Signs - 24 hr 11/06/23 06:47 11/06/23 07:54 11/06/23 10:00 Temperature 97.9 F Pulse Rate 101 H 88 102 H Respiratory Rate 18 16 16 Blood Pressure 152/96 H 135/79 142/89 H Pulse Oximetry 99 99 100 Oxygen Delivery Method Room Air Room Air Room Air 11/06/23 12:00 11/06/23 13:53 Temperature Pulse Rate 104 H Respiratory Rate 16 16 Blood Pressure 145/91 H Pulse Oximetry 98 Oxygen Delivery Method Room Air BMI result Body Mass Index 29.1 Appearance: Alert. Oriented X3. Anxious mild acute distress. Eyes: Pupils equal, round and reactive to light. ENT: Pharynx normal. Neck: Normal inspection. Neck supple. CVS: Normal heart rate and rhythm. Pulses normal. Respiratory: No respiratory distress. Breath sounds normal. Abdomen: Soft and nontender. Skin: Skin warm and dry. Normal skin color. Normal skin turgor. Extremities: No lower extremity edema. No calf ttp Neuro: Oriented X 3. No motor deficit. No sensory deficit. Slightly shaky Course Course Course Narrative: improved after IV versed for withdrawal Reevaluation(s) Reevaluation #1: Physician observation started at 1024am. Patient placed in physician observation because the patient needed more time for addiction medicine and CARE team to help with detox needs. At the time observation was started the patient's vitals were stable, patient is alert and oriented, Neuro: nonfocal, CV RRR, Lungs clear Reevaluation #2: Physician observation ended at 205pm. She no longer wants to wait for inpatient care or detox she wants to go home. Disposition is for home. Medical Decision Making Medical Decision Making [facility] Narrative: 28 yo female with PMH of alcohol use disorder no prior seizures here with c/o tremors n/v anxiety at this time will give IVF, thiamine, magnesium, IV versed and obtain labs - will involve addiction team as she has issues getting Rx due to lack of insurance card. She is interested in detox and has never gone before. She denies any psychiatric hx has a strong family component of alcoholism Differential Diagnosis Differential Diagnoses: The differential diagnosis associated with the presentation includes alcohol use disorder, alcohol withdrawal Admission/Observation Consideration of admission/observation: Escalation of care including admission/observation considered VS improved not vomiting would be appropriate for detox Consult Healthcare Provider Management of the patient was discussed with: Senior Billing Consultant (CARE team helping with detox) Lab Data [facility] Lab Attestation statement: I reviewed the patient's lab results. 11/06/23 07:24 11/06/23 07:24 Labs: Lab Results 11/06/23 Range/Units 07:24 WBC 7.6 (4.8-10.8) X10*3/uL RBC 5.17 (4.20-5.50) X10*6/uL Hgb 14.5 (12.0-16.0) g/dl Hct 44.1 (37.0-47.0) % MCV 85.3 (80.0-98.0) fL MCH 28.0 (27.0-33.0) pg MCHC 32.9 (31.0-35.0) g/dl RDW 14.7 (11.0-16.0) % Plt Count 350 (160-400) X10*3/uL MPV 8.6 L (9.4-12.3) fL Immature Gran % (Auto) 0.4 (0.0-0.4) % Neut % (Auto) 68.0 (45-73) % Lymph % (Auto) 24.3 (20-40) % [place] % (Auto) 6.7 (2-11) % Eos % (Auto) 0.1 (0-4) % Baso % (Auto) 0.5 (0-2) % Lymph # (Auto) 1.8 (1.2-4.9) X10*3/uL [place] # (Auto) 0.5 (0.1-1.2) X10*3/uL Eos # (Auto) 0.0 (0.0-0.4) X10*3/uL Baso # (Auto) 0.0 (0.0-0.2) X10*3/uL Abs Immat Gran (auto) 0.03 (0.00-0.03) X10*3/uL Absolute Neuts (auto) 5.2 (2.0-8.3) x10*3/uL Absolute Nucleated RBC 0.000 (0.0-0.012) X10*3/uL Nucleated RBC % (auto) 0.0 (0.0-0.2) /100WBC PT 12.6 (11.1-13.3) SEC INR 1.0 (0.9-1.1) Sodium 137 (135-145) mmol/L Potassium 3.6 (3.3-5.1) mmol/L Chloride 96 (96-108) mmol/L Carbon Dioxide 25 (22-29) mmol/L Anion Gap 20 (12-20) BUN 4 L (9-16) mg/dL Creatinine 0.69 (0.5-1.4) mg/dL Estim Creat Clear Calc 108.5 Estimated GFR > 60 Random Glucose 85 (60-115) mg/dL Calcium 9.1 (8.4-10.2) mg/dL Magnesium 1.6 (1.6-2.6) mg/dL Total Bilirubin 0.6 (0.0-1.0) mg/dL Direct Bilirubin 0.2 (0.0-0.5) mg/dL AST 41 H (5-31) U/L ALT 37 H (0-31) U/L Alkaline Phosphatase 103 (39-117) U/L Total Protein 8.1 H (6.5-8.0) g/dL Albumin 4.6 (3.5-5.0) g/dL Lipase 11 (8-78) U/L Beta HCG, Quant < 2 mIU/mL Ethyl Alcohol 57 mg/dL COVID-19 ([facility]) Negative (Negative) COVID-19 Clin Com See Note External Record Review External record reviewed: Inpatient record Social Determinants Patient?s care significantly limited by Social Determinants of Health including: Alcoholism and drug addiction in family and Problems related to primary support group Medications Administered Discontinued Medications Generic Name Dose Route Start Last Admin Trade Name Stanley PRN Reason Stop Dose Admin Thiamine HCl 200 mg/ Sodium 102 mls @ 204 mls/hr 11/06/23 06:59 11/06/23 08:56 Chloride IV 11/06/23 07:28 Infused ONCE ONE Infusion Magnesium Sulfate 2 gm in 50 mls @ 25 mls/hr 11/06/23 06:59 11/06/23 08:56 Magnesium Sulfate/H2o IV 11/06/23 08:58 Infused ONCE ONE Infusion Sodium Chloride 1,000 mls @ 999 mls/hr 11/06/23 07:00 11/06/23 08:56 Ns IV 11/06/23 08:00 Infused .Q1H1M KARLO Infusion Lorazepam 1 mg 11/06/23 08:48 11/06/23 08:56 Lorazepam 1 Mg Tablet PO 11/06/23 08:49 1 mg ONCE ONE Administration Lorazepam 1 mg 11/06/23 09:03 11/06/23 09:16 Lorazepam 1 Mg Tablet PO 11/06/23 09:04 1 mg ONCE ONE Administration Midazolam HCl 2 mg 11/06/23 06:59 11/06/23 07:32 Midazolam Hcl/Pf 2 Mg/2 Ml Vial IVPUSH 11/06/23 07:00 2 mg ONCE ONE Administration Ondansetron HCl 4 mg 11/06/23 06:59 11/06/23 07:31 Ondansetron Hcl 4 Mg/2 Ml Vial IVPUSH 11/06/23 07:00 4 mg ONCE ONE Administration Critical Care Time Critical Care Time Critical Care Time: Yes Total Critical Care Time: 35 Attestation: improved after IV versed for withdrawal symptoms I attest to this time spent taking care of the patient Discharge Plan Discharge Clinical Impression: Alcohol withdrawal syndrome Qualifiers: Complication of substance-induced condition: uncomplicated Qualified Code(s): F10.930 - Alcohol use, unspecified with withdrawal, uncomplicated Patient Disposition: Home, Self-Care Instructions: Alcohol Withdrawal (ED) Additional Instructions: please go to detox as soon as possible. return for vomiting, weakness, hallucinations, seizures or any other concerns. Prescriptions: No Action naltrexone 50 mg tablet 50 mg PO DAILY Qty: 30 0RF Rx Instructions: Take 1/2 tab x 3 days and advance to full tab if tolerated well lorazepam [Ativan] 1 mg tablet 1 mg PO TID PRN (Reason: alcohol withdrawal) Qty: 10 0RF ashwagandha root extract 300 mg Capsule 600 mg PO BID PRN (Reason: Anxiety)
[2023-11-06 07:28] LABS: MANUAL DIFF FLAG NO
[2023-11-06 07:29] LABS: Basophils Percent Auto 0.5 % (0-2); Eosinophils Percent Auto 0.1 % (0-4); Hematocrit 44.1 % (37.0-47.0); Hemoglobin 14.5 g/dl (12.0-16.0); Imm Gran Abs Auto 0.03 X10*3/uL (0.00-0.03); Imm Gran Pct Auto 0.4 % (0.0-0.4); Lymphocytes Absolute Auto 1.8 X10*3/uL (1.2-4.9); Lymphocytes Percent Auto 24.3 % (20-40); Mean Corpuscular HGB Conc 32.9 g/dl (31.0-35.0); Mean Corpuscular Volume 85.3 fL (80.0-98.0); Mean Platelet Volume 8.6 fL (9.4-12.3); Monocytes Absolute Auto 0.5 X10*3/uL (0.1-1.2); Monocytes Percent Auto 6.7 % (2-11); Neutrophils Absolute Auto 5.2 x10*3/uL (2.0-8.3); Platelet Count 350 X10*3/uL (160-400); Red Blood Count 5.17 X10*6/uL (4.20-5.50); Red Cell Distribution Width 14.7 % (11.0-16.0); White Blood Count 7.6 X10*3/uL (4.8-10.8)
[2023-11-06] MEDS: Magnesium Sulfate/H2O 2 GM/50 ML PIGGYBACK IV (07:31)
[2023-11-06] MEDS: ondansetron HCL 4 MG/2 ML VIAL IVPUSH (07:31)
[2023-11-06] MEDS: 0.9 % Sodium Chloride 1,000 ML 999 ML IV (07:32)
[2023-11-06] MEDS: Midazolam HCl/PF 2 MG/2 ML VIAL IVPUSH (07:32)
--- NOTE | 2023-11-06 07:35 | PC.NURSE ---
Pt is a&ox 4 coming in for alcohol withdrawl , pt reports having last drink 11/05/2023 @1500. Pt reports drinking a pint and a half of vodka the last two days. feels shaky, Ciwa score a 5, 20 left ac. skin PWD. MAEI, Reports nausea, no vomiting. denies abd pain .
[2023-11-06 07:36] LABS: Prothrombin Time 12.6 SEC (11.1-13.3)
[2023-11-06 07:47] LABS: COVID-19 Test Negative (Negative); IDNOW Serial# 9DB6401D
[2023-11-06 07:49] LABS: Alanine Aminotransferase 37 U/L (0-31); Albumin Level 4.6 g/dL (3.5-5.0); Alkaline Phosphatase 103 U/L (39-117); Anion Gap 20 (12-20); Aspartate Amino Transferase 41 U/L (5-31); Bilirubin Direct 0.2 mg/dL (0.0-0.5); Bilirubin Total 0.6 mg/dL (0.0-1.0); Blood Urea Nitrogen 4 mg/dL (9-16); Calcium 9.1 mg/dL (8.4-10.2); Carbon Dioxide 25 mmol/L (22-29); Chloride 96 mmol/L (96-108); Creatinine Clr Calc Pharmacy 108.5; Estimated Glomerular Filt Rate > 60; Glucose Random 85 mg/dL (60-115); Lipase 11 U/L (8-78); Magnesium 1.6 mg/dL (1.6-2.6); Potassium 3.6 mmol/L (3.3-5.1); Sodium 137 mmol/L (135-145); Total Protein 8.1 g/dL (6.5-8.0)
[2023-11-06 07:51] LABS: HCG Quantitative < 2 mIU/mL
[2023-11-06 07:54] VITALS: BP 135/79; PULSE 88; RESP 16; O2SAT 99
[2023-11-06] MEDS: Thiamine HCL 200 MG in 0.9 % Sodium Chloride 100 ML 204 MG IV (08:01)
[2023-11-06] MEDS: LORazepam 1 MG TABLET PO ×2 (08:56→09:16)
--- NOTE | 2023-11-06 09:25 | MHC.CARE ---
CARE Team met with Pt to discuss recovery resources. Pt states struggling with alcohol use over the past 2 years. Pt reports recently drinking a half pint of vodka daily. Pt expressed interest in ATS placement. Pt is currently being managed in the ED for withdrawal symptoms. Pt referred to [facility].
[2023-11-06 09:44] LABS: Ethanol 57 mg/dL
[2023-11-06 10:00] VITALS: BP 142/89; PULSE 102; RESP 16; O2SAT 100
[2023-11-06 12:00] VITALS: RESP 16
[2023-11-06 13:53] VITALS: BP 145/91; PULSE 104; RESP 16; O2SAT 98
--- NOTE | 2023-11-06 15:45 | MHC.RECOVRN ---
Met with pt prior to discharge. Bedsearch had been exhausted and pt simultaneously requesting to discharge. Pt provided with list of ATS facilities, encouraged to present as walk in to [facility] at 8AM. Pt has naltrexone rx at the pharmacy, reports problem with insurance so she wasn't able to get it. Pt provided with active insurance information. Pt encouraged to call [facility] if desire for outpatient tx. Pt denies other questions or concerns. Discussed with provider.
--- NOTE | 2023-11-06 17:14 | MHC.CARE ---
[facility] called to see if patient still needed placement. Patient discharged earlier today when the search was exhausted, CARE Team provided contact information and faxed summary report to [facility] [phone].
== END 2023-11-06 14:20 | disposition home or self-care (01) ==
PROVIDERS: Emergency Provider Emergency Medicine
DX: F10.239 Alcohol dependence with withdrawal, unspecified (principal); Y90.2 Blood alcohol level of 40-59 mg/100 ml; F17.210 Nicotine dependence, cigarettes, uncomplicated; Z11.52 Encounter for screening for COVID-19; Z79.899 Other long term (current) drug therapy
CPT/HCPCS: 80048; 80076; 80307; 83690; 83735; 84702; 85025; 85610; 87635; 96365; 96366; 96375; 99284; J2250; J2405; J3411; J3475

== ENCOUNTER 2023-11-14 19:42 | Emergency (ER) | payer OTHER, SELFPAY ==
[2023-11-14 19:52] VITALS: BP 135/82; PULSE 120; RESP 16; TEMP 36.3; O2SAT 97; BMI 28.2
--- NOTE | 2023-11-14 19:53 | ED_ITS ---
HPI - General Adult General Chief complaint: ETOH/Substance Use Stated complaint: withdrawls Time Seen by Provider: 11/14/23 23:22 Source: patient and old records reviewed Mode of arrival: ambulatory Limitations: no limitations History of Present Illness HPI narrative: 28 yo female with PMH of alcohol use disorder no hx of withdrawal seizures here with c/o wanting detox she has nausea and reports feeling shaky. Her last drink was at 530pm. She drinks 2 pints a day. We did recently see her and obtained detox bed for her but she did not stay and complete treatment. She is here again asking for placement. complaint: alcohol withdrawal Onset (ago): hour(s) (few) Radiation: non-radiation Severity: moderate Relieving factors: none Exacerbating factors: none Associated symptoms: loss of appetite, malaise and nausea/vomiting Treatments prior to arrival: none Related Data Home Medications Medication Instructions Recorded Confirmed ashstephaniedha root extract 300 mg 600 mg PO BID PRN Anxiety 08/20/23 08/20/23 capsule Previous Rx's Medication Instructions Recorded lorazepam 1 mg tablet (Ativan) 1 mg PO TID PRN alcohol withdrawal 09/21/23 #10 tabs naltrexone 50 mg tablet 50 mg PO DAILY #30 tabs 10/23/23 naltrexone 50 mg tablet 50 mg PO DAILY #30 tabs 11/15/23 Allergies Allergy/AdvReac Type Severity Reaction Status Date / Time No Known Allergies Allergy Verified 11/14/23 19:57 [No Known Allergies*] Review of Systems 2 Review of Systems: Constitutional : No Fever, No Chills, No Fatigue ENT/Mouth : No sore throat, No Rhinorrhea Eyes: No Eye Pain, No Swelling, No Redness Cardiovascular : No Chest Pain, No SOB, No Dyspnea on Exertion Respiratory : No Cough, No Sputum Gastrointestinal : No Nausea, No Vomiting, No Diarrhea, No abdominal Pain Genitourinary : No Dysuria, No Urinary Frequency, No Hematuria, Musculoskeletal : No joint pain, No Myalgias, No Joint Swelling Skin : No Skin Lesions, No rash Neuro : No Weakness, No Numbness, No Dizziness, positive Headache Psych : pos Anxiety/Panic, No Depression Heme/Lymph: No Bruising, No Bleeding,No Lymphadenopathy Endocrine : No Polyuria, No Polydipsia All other systems reviewed and are negative PMFSH Past Medical History Attestation statement: The following information was validated with the patient. Source: old records reviewed Medical History Alcohol use disorder Social History Social History Household Members: Significant Other Household Members Other:: 2 Housing: House Do you presently have visiting nurse or other home services: No Alcohol intake: current Alcohol intake frequency: 3 or more drinks per day Alcohol type: hard liquor Patient Tobacco Use Status: Current everyday Tobacco user Tobacco use type: Cigarette Smoked in Last 30 Days: Yes e-Cigarette/Vaping Use: Never Used Use of substances other than those prescribed or required for medical reasons: Yes Substance Use Type: Marijuana Advance Directives: No Advance Directives Information Provided: No service: No Physical Exam ED Vital Signs: Vital Signs - 24 hr 11/14/23 19:52 11/14/23 21:41 11/15/23 03:45 Temperature 97.3 F 97.8 F 98.2 F Pulse Rate 120 H 113 H 100 Respiratory Rate 16 14 16 Blood Pressure 135/82 156/88 H 114/67 Pulse Oximetry 97 97 100 Oxygen Delivery Method Room Air Room Air Room Air 11/15/23 07:18 Temperature 98.9 F Pulse Rate 92 Respiratory Rate 16 Blood Pressure 116/71 Pulse Oximetry 100 Oxygen Delivery Method Room Air BMI result Body Mass Index 28.2 Appearance: Alert. Oriented X3. Anxious mild acute distress. Eyes: Pupils equal, round and reactive to light. ENT: Pharynx normal. mild tongue fasciculations Neck: Normal inspection. Neck supple. CVS: Normal heart rate and rhythm. Pulses normal. Respiratory: No respiratory distress. Breath sounds normal. Abdomen: Soft and nontender. Skin: Skin warm and dry. Normal skin color. Normal skin turgor. Extremities: No lower extremity edema. No calf ttp Neuro: Oriented X 3. No motor deficit. No sensory deficit. mild tremors Course Course Course Narrative: RME:?28 yo female here for eval of here for concern of etoh withdrawal. admits to feeling internal tremors , nausea and vomiting over the last few ours. reports drinking 2 pints of liquor 2-3x weekly. last consumed 2 pints of liquor 3 hours [employer]. Admitted to hospital in the past for etoh withdrawal. Denies history of DT or withdrawal seizures. endorses marijuana and tobacco use. denies other ilicit substance use. Denies AH/VH. Seeking detox. denies fever, chills, abd pain, diarrhea. anxious on exam. No tongue fasciculations. No asterixis. No tremors. labs, UA, u preg, and addiction med consult ordered. zofran given. Full HPI, ROS and PE to be performed by the primary ED provider. Reevaluation(s) Reevaluation #1: 11/15/2023 08:02AM - physician observation continued. No overnight events per nursing staff. Patient awaiting care team consult vital signs stable. Will continue to monitor 11/15/2023 - 10:30AM - physician observation continued. Care team saw patient, they were able to find her a bed however she declines. She is feeling well. She is clinically sober and ate breakfast. Discussed starting naltrexone with the care team and believes that this would be beneficial. Patient given half a tablet in the apartment. Prescription sent to pharmacy. She was also given outpatient resources to follow-up. She understands and agrees with plan. Stable for discharge Medications Administered Generic Name Dose Route Start Last Admin Trade Name Freq PRN Reason Stop Dose Admin Lorazepam 2 mg 11/14/23 23:58 11/15/23 07:52 Lorazepam 1 Mg Tablet PO 2 mg Q3H PRN Administration Alcohol Withdrawal Discontinued Medications Generic Name Dose Route Start Last Admin Trade Name Freq PRN Reason Stop Dose Admin Sodium Chloride 1,000 mls @ 999 mls/hr 11/14/23 23:30 11/15/23 01:58 Ns IV 11/15/23 00:30 Infused .Q1H1M KARLO Infusion Thiamine HCl 200 mg/ Sodium 102 mls @ 204 mls/hr 11/14/23 23:24 11/15/23 00:33 Chloride IV 11/14/23 23:53 Infused ONCE ONE Infusion Lorazepam 2 mg 11/14/23 23:24 11/14/23 23:58 Lorazepam 2 Mg/Ml Vial IVPUSH 11/14/23 23:25 2 mg ONCE ONE Administration Ondansetron HCl 4 mg 11/14/23 19:56 11/14/23 19:58 Ondansetron Odt 4 Mg Tab.Rapdis TRANSLINGU 11/14/23 19:57 4 mg ONCE ONE Administration Medical Decision Making Medical Decision Making MDM Narrative: 28 yo female with PMH of ETOH abuse here with mild withdrawals already better with ativan - will put on PO ativan and LEIA refer to CARE team for detox eval. She has no hx of seizures. She appears much better with medications. No SI. Differential Diagnosis Differential Diagnoses: The differential diagnosis associated with the presentation includes alcohol use disorder, alcohol withdrawal Admission/Observation Consideration of admission/observation: Escalation of care including admission/observation considered observe until seen by CARE team, observation started at 1158pm phys obs started 1158pm Consult Healthcare Provider Management of the patient was discussed with: Behavioral Health Provider Lab Data [facility] Lab Attestation statement: I reviewed the patient's lab results. 11/14/23 20:18 11/14/23 20:18 Labs: Lab Results 11/14/23 11/15/23 Range/Units 20:18 00:40 WBC 8.4 (4.8-10.8) X10*3/uL RBC 5.38 (4.20-5.50) X10*6/uL Hgb 15.3 (12.0-16.0) g/dl Hct 45.2 (37.0-47.0) % MCV 84.0 (80.0-98.0) fL MCH 28.4 (27.0-33.0) pg MCHC 33.8 (31.0-35.0) g/dl RDW 15.1 (11.0-16.0) % Plt Count 296 (160-400) X10*3/uL MPV 8.9 L (9.4-12.3) fL Immature Gran % (Auto) 0.4 (0.0-0.4) % Neut % (Auto) 66.4 (45-73) % Lymph % (Auto) 24.8 (20-40) % [place] % (Auto) 7.6 (2-11) % Eos % (Auto) 0.2 (0-4) % Baso % (Auto) 0.6 (0-2) % Lymph # (Auto) 2.1 (1.2-4.9) X10*3/uL [place] # (Auto) 0.6 (0.1-1.2) X10*3/uL Eos # (Auto) 0.0 (0.0-0.4) X10*3/uL Baso # (Auto) 0.1 (0.0-0.2) X10*3/uL Abs Immat Gran (auto) 0.03 (0.00-0.03) X10*3/uL Absolute Neuts (auto) 5.6 (2.0-8.3) x10*3/uL Absolute Nucleated RBC 0.000 (0.0-0.012) X10*3/uL Nucleated RBC % (auto) 0.0 (0.0-0.2) /100WBC Sodium 142 (135-145) mmol/L Potassium 3.3 (3.3-5.1) mmol/L Chloride 102 (96-108) mmol/L Carbon Dioxide 26 (22-29) mmol/L Anion Gap 17 (12-20) BUN 7 L (9-16) mg/dL Creatinine 0.73 (0.5-1.4) mg/dL Estim Creat Clear Calc 101.1 Estimated GFR > 60 Random Glucose 127 H (60-115) mg/dL Calcium 9.0 (8.4-10.2) mg/dL Magnesium 2.1 (1.6-2.6) mg/dL Total Bilirubin 0.3 (0.0-1.0) mg/dL AST 30 (5-31) U/L ALT 44 H (0-31) U/L Alkaline Phosphatase 93 (39-117) U/L Total Protein 8.1 H (6.5-8.0) g/dL Albumin 4.6 (3.5-5.0) g/dL Lipase 9 (8-78) U/L Urine Color Yellow Urine Appearance Cloudy Urine pH 6.0 (5.0-9.0) Ur Specific [place] 1.015 (1.005-1.025) Urine Protein Trace (Neg-Trace) mg/dL Urine Glucose (UA) Negative (Negative) mg/dL Urine Ketones 15 (Negative) mg/dL Urine Blood Trace H (Negative) Urine Nitrite Negative (Negative) Ur Leukocyte Esterase Negative (Negative) Urine RBC 3-5 H (0-2) /HPF Urine WBC 0-5 (0-5) /HPF Ur Squamous Epith Cells 6-10 (0-2) /HPF Urine Bacteria Trace (None Seen) Hyaline Casts 0-2 (0-2) /LPF Urine Test NEGATIVE (NEGATIVE) Salicylates < 5.0 L (15-30) mg/dL Urine Opiates Screen Not Detected (Not Detect) Urine Fentanyl Screen Not Detected (Not Detect) Ur Barbiturates Screen Not Detected (Not Detect) Ur Phencyclidine Scrn Not Detected (Not Detect) Ur Amphetamines Screen Not Detected (Not Detect) U Benzodiazepines Scrn Not Detected (Not Detect) Urine Cocaine Screen Not Detected (Not Detect) U Marijuana (THC) Screen POSITIVE H (Not Detect) Ethyl Alcohol 260 mg/dL External Record Review External record reviewed: Inpatient record Social Determinants Patient?s care significantly limited by Social Determinants of Health including: Alcoholism and drug addiction in family and Problems related to primary support group Critical Care Time Critical Care Time Critical Care Time: Yes Total Critical Care Time: 35 Attestation: IV ativan, IVF, treatment for alcohol withdrawal I attest to this time spent taking care of the patient Discharge Plan Discharge Clinical Impression: Alcohol withdrawal syndrome Patient Disposition: Still a Patient Additional Instructions: Your seen in the emergency department due to alcohol withdrawal. We were able to find you a detox bed however you declined. We started you on oral naltrexone, this helps with alcohol cravings. Please take as prescribed. For the 1st 3 days take half a tablet, you can increase to a full tablet. Take once a day. Follow-up with the detox services that the care team provided to you. Stopped drinking as this is very harmful to your health. If any new or worsening symptoms occur including but not limited to chest pain, shortness of breath, please return for re-evaluation. Prescriptions: New naltrexone 50 mg tablet 50 mg PO DAILY Qty: 30 0RF Rx Instructions: 1/2 tab x 2 days, then full tab. No Action naltrexone 50 mg tablet 50 mg PO DAILY Qty: 30 0RF Rx Instructions: Take 1/2 tab x 3 days and advance to full tab if tolerated well lorazepam [Ativan] 1 mg tablet 1 mg PO TID PRN (Reason: alcohol withdrawal) Qty: 10 0RF ashwagandha root extract 300 mg Capsule 600 mg PO BID PRN (Reason: Anxiety)
[2023-11-14] MEDS: Ondansetron ODT 4 MG TAB.RAPDIS TRANSLINGU (19:58)
[2023-11-14 20:24] LABS: MANUAL DIFF FLAG NO
[2023-11-14 20:27] LABS: Basophils Absolute Auto 0.1 X10*3/uL (0.0-0.2); Basophils Percent Auto 0.6 % (0-2); Eosinophils Percent Auto 0.2 % (0-4); Hematocrit 45.2 % (37.0-47.0); Hemoglobin 15.3 g/dl (12.0-16.0); Imm Gran Abs Auto 0.03 X10*3/uL (0.00-0.03); Imm Gran Pct Auto 0.4 % (0.0-0.4); Lymphocytes Absolute Auto 2.1 X10*3/uL (1.2-4.9); Lymphocytes Percent Auto 24.8 % (20-40); Mean Corpuscular HGB Conc 33.8 g/dl (31.0-35.0); Mean Corpuscular Hemoglobin 28.4 pg (27.0-33.0); Mean Platelet Volume 8.9 fL (9.4-12.3); Monocytes Absolute Auto 0.6 X10*3/uL (0.1-1.2); Monocytes Percent Auto 7.6 % (2-11); Neutrophils Absolute Auto 5.6 x10*3/uL (2.0-8.3); Neutrophils Percent Auto 66.4 % (45-73); Platelet Count 296 X10*3/uL (160-400); Red Blood Count 5.38 X10*6/uL (4.20-5.50); Red Cell Distribution Width 15.1 % (11.0-16.0); White Blood Count 8.4 X10*3/uL (4.8-10.8)
[2023-11-14 20:40] LABS: Ethanol 260 mg/dL
[2023-11-14 20:41] LABS: Alanine Aminotransferase 44 U/L (0-31); Albumin Level 4.6 g/dL (3.5-5.0); Alkaline Phosphatase 93 U/L (39-117); Anion Gap 17 (12-20); Aspartate Amino Transferase 30 U/L (5-31); Bilirubin Total 0.3 mg/dL (0.0-1.0); Blood Urea Nitrogen 7 mg/dL (9-16); Carbon Dioxide 26 mmol/L (22-29); Chloride 102 mmol/L (96-108); Creatinine Clr Calc Pharmacy 101.1; Estimated Glomerular Filt Rate > 60; Glucose Random 127 mg/dL (60-115); Lipase 9 U/L (8-78); Magnesium 2.1 mg/dL (1.6-2.6); Potassium 3.3 mmol/L (3.3-5.1); Sodium 142 mmol/L (135-145); Total Protein 8.1 g/dL (6.5-8.0)
[2023-11-14 20:43] LABS: Salicylate < 5.0 mg/dL (15-30)
[2023-11-14 21:41] VITALS: BP 156/88; PULSE 113; RESP 14; TEMP 36.6; O2SAT 97
[2023-11-14] MEDS: Thiamine HCL 200 MG in 0.9 % Sodium Chloride 100 ML 204 MG IV (23:58)
[2023-11-14] MEDS: LORazepam 2 MG/ML VIAL IVPUSH (23:58)
[2023-11-14] MEDS: 0.9 % Sodium Chloride 1,000 ML 999 ML IV (23:58)
[2023-11-15 00:49] LABS: Appearance Urine Cloudy; Color Urine Yellow; Glucose Urine UA Negative (Negative); Leukocyte Esterase Urine Negative (Negative); Nitrite Urine Negative (Negative); Specific Gravity - Urine 1.015 (1.005-1.025); UMIC TRIGGER UACC YES; Urine Blood Trace (Negative); Urine Ketones 15 mg/dL (Negative); Urine Protein Trace mg/dL (Neg-Trace)
[2023-11-15 00:51] LABS: UPreg QC Valid YES; Urine Pregnancy NEGATIVE (NEGATIVE)
[2023-11-15 00:56] LABS: Bacteria Urine Trace (None Seen); Hyaline Casts Urine 0-2 /LPF (0-2); WBC Urine 0-5 /HPF (0-5)
[2023-11-15 00:57] LABS: Amphetamine Screen Urine Not Detected (Not Detect); Barbiturates, Urine Not Detected (Not Detect); Benzodiazepines Screen Urine Not Detected (Not Detect); Cannabinoid Screen Urine POSITIVE (Not Detect); Cocaine Screen Urine Not Detected (Not Detect); Fentanyl, urine Not Detected (Not Detect); Opiate Screen Urine Not Detected (Not Detect); Phencyclidine Screen Urine Not Detected (Not Detect)
[2023-11-15 03:45] VITALS: BP 114/67; PULSE 100; RESP 16; TEMP 36.8; O2SAT 100
--- NOTE | 2023-11-15 05:00 | PC.NURSE ---
Addendum entered by Bradley Lang 11/15/23 07:25: to ensure that belongings are safe at bedside. Original Note: pt is voluntarily seeking detox; denies si/hi. changed over into hospital gown however per account engineer Karen ok to leave belongings at bedside. security searched through belongings to ensure no
[2023-11-15 07:18] VITALS: BP 116/71; PULSE 92; RESP 16; TEMP 37.2; O2SAT 100
[2023-11-15] MEDS: LORazepam 1 MG TABLET 2 MG PO (07:52)
--- NOTE | 2023-11-15 08:13 | PC.NURSE ---
this RN resumed care of pt at this time. vss and up to date. pt resting comfortably in stretcher in no apparent distress. updated CIWA at this time = 7. pt verbalizing feeling extremely anxious at this time - prn ativan administered per provider order. effectiveness pending. regular diet order placed - kitchen called. no sob/wob noted. respirations even and unlabored. pt waiting for plan in regards to detox. plan of care ongoing.
--- NOTE | 2023-11-15 09:20 | PC.NURSE ---
pt continues to rest in no apparent distress in the stretcher at this time. pt states feeling less anxious post prn ativan administration. respirations remain even and unlabored.
--- NOTE | 2023-11-15 10:16 | PC.NURSE ---
pt speaking w/ recovery team AMINA Choudhary at this time in regards to plan of care going forward.
--- NOTE | 2023-11-15 10:47 | MHC.RECOVRN ---
Met with pt in [id number] to discuss findings of ATS bedsearch. The only bed available in [place] is at [facility] in [place], pt declines this bed. Provider present, discussing naltrexone with pt and follow up at the [facility]. Pt had an appt once before but did not make it. Pt would like to reschedule, plan for [facility] to call pt Friday to schedule appt. Pt denies other questions or concerns. Provided with list of ATS facilities and their contact info if needed.
[2023-11-15] MEDS: Naltrexone HCl 50 MG TABLET 25 MG PO (10:51)
== END 2023-11-15 10:37 | disposition home or self-care (01) ==
PROVIDERS: Physician Assistant Medical; Emergency Provider Emergency Medicine
DX: R56.9 Unspecified convulsions (principal); R11.2 Nausea with vomiting, unspecified; F10.239 Alcohol dependence with withdrawal, unspecified; Y90.7 Blood alcohol level of 200-239 mg/100 ml; F17.210 Nicotine dependence, cigarettes, uncomplicated
CPT/HCPCS: 36415; 80053; 80179; 80307; 81001; 81025; 83690; 83735; 85025; 96361; 96365; 96375; 99284; J2060; J3411

== ENCOUNTER 2024-07-04 10:00 | Emergency (ER) | payer MEDICAID, SELFPAY ==
[2024-07-04 10:02] VITALS: BP 138/83; PULSE 115; RESP 18; TEMP 37.1; O2SAT 96; BMI 30.4
--- NOTE | 2024-07-04 10:14 | PC.NURSE ---
Pt is unclear on cats vaccination status, has seen cat in the area again this AM. Animal control has not been contacted at this time by patient
--- NOTE | 2024-07-04 11:04 | ED_ITS ---
HPI - General Adult General Chief complaint: Animal Bite Stated complaint: Animal bite r hand Time Seen by Provider: 07/04/24 10:14 Source: patient Mode of arrival: ambulatory Limitations: no limitations History of Present Illness ED Provider: Barrett Hernandez PA-C HPI narrative: 28-year-old female healthy presents to ED for cat bite to right hand. Patient states she was feeding a stray vat yesterday. Patient was bit in on right hand and right forearm. Patient states in had a collar but no on his name or address. Related Data Home Medications ?Medication ?Instructions ?Recorded ?Confirmed ashwagandha root extract 300 mg 600 mg PO BID PRN Anxiety 08/20/23 08/20/23 capsule Previous Rx's ?Medication ?Instructions ?Recorded lorazepam 1 mg tablet (Ativan) 1 mg PO TID PRN alcohol withdrawal 09/21/23 #10 tabs naltrexone 50 mg tablet 50 mg PO DAILY #30 tabs 10/23/23 naltrexone 50 mg tablet 50 mg PO DAILY #30 tabs 11/15/23 amoxicillin 875 mg-potassium 1 tab PO Q12H 10 days #20 tabs 07/04/24 clavulanate 125 mg tablet naproxen 500 mg tablet 500 mg PO BID PRN pain 7 days #14 07/04/24 tabs Allergies Allergy/AdvReac Type Severity Reaction Status Date / Time No Known Allergies Allergy Verified 07/04/24 10:03 [No Known Allergies*] Review of Systems 2 Review of Systems: Bit in right hand right forearm Yes all other systems are reviewed and are negative [facility] Past Medical History Medical History Alcohol use disorder Social History Social History Household Members: Significant Other Household Members Other:: 2 Housing: House Do you presently have visiting nurse or other home services: No Alcohol intake: current Alcohol intake frequency: 3 or more drinks per day Alcohol type: hard liquor Patient Tobacco Use Status: Current everyday Tobacco user Tobacco use type: Cigarette e-Cigarette/Vaping Use: Never Used Substance Use Type: Marijuana Advance Directives: No Advance Directives Information Provided: Yes service: No Physical Exam ED Vital Signs: Vital Signs - 24 hr 07/04/24 10:02 07/04/24 12:06 Temperature 98.7 F 98.4 F Pulse Rate 115 H 95 Respiratory Rate 18 16 Blood Pressure 138/83 138/87 Pulse Oximetry 96 98 Oxygen Delivery Method Room Air Room Air BMI result Body Mass Index 30.4 Const General: cooperative, healthy appearing, comfortable, no acute distress, well developed, alert, awake and Physically active Orientation/consciousness: patient oriented x3 [facility] Head: Yes normal to inspection, Yes No palpable skull fracture present, Yes normocephalic and Yes atraumatic Eyes General: appearance normal, both eyes and all related structures Neck Neck: Yes normal visual inspection, Yes full ROM, Yes no lymphadenopathy, Yes no meningeal signs, Yes trachea midline, Yes supple, No anterior neck swelling and No tender Chest Chest palpation & inspection: normal inspection of the chest and normal palpation of entire chest wall Resp Effort & Inspection: normal respiratory effort and able to speak in complete sentences Auscultation: clear to auscultation bilaterally Cardio Jugular venous distension: no JVD Heart sounds: S1 normal heart sound present and S2 normal heart sound present GI Inspection: Yes normal to inspection Palpation (GI): Soft to palpation, not firm, nontender, no guarding and not rigid General: Yes no CVA tenderness Back/Spine/Pelvis Back: no CVA tenderness and No back tenderness Skin General skin exam: no rashes or lesions noted, elasticity normal and turgor normal Neuro General: patient oriented x3, gait normal, tone normal, moves all extremities, Normal light touch and pain sensation, no meningeal signs, no focal motor deficits, CN's II-XI intact bilaterally and normal sensation to monofilament Extrem General: Yes normal to inspection and Yes full ROM Elbow/forearm/wrist images: 2 1. Superficial bite esme 2. Superficial bite donovan 3. Superficial bite donovan 4. Superficial bite esme Hand/finger images: 2 1. Bite esme with some redness and slight swelling. Patient is able to move thumb. Negative for pus discharge no foul odor. Vascular neuro exam intact. Motor exam intact but limited due to pain. Negative for ecchymosis or crepitus. Rest of extremity normal. Motor/neuro/vascular exam intact. Negative for red streaks 2. Bite esme with some redness and slight swelling. Patient is able to move thumb. Negative for pus discharge no foul odor. Vascular neuro exam intact. Motor exam intact but limited due to pain. Negative for ecchymosis or crepitus. Rest of extremity normal. Motor/neuro/vascular exam intact. Negative for red streaks Psych Appearance: grossly normal, well kempt and not disheveled Medications Administered Discontinued Medications Generic Name Dose Route Start Last Admin Trade Name Davidq PRN Reason Stop Dose Admin Diphtheria/Tetanus/Acell Pertussis 0.5 ml 07/04/24 10:59 07/04/24 11:11 Diphth,Pertus(Acell),Tet Adult 0.5 Ml Syringe IM 07/04/24 11:00 0.5 ml .ONCE ONE Administration Rabies Immune Globulin 1,458 unit 07/04/24 10:26 07/04/24 11:12 Rabies Immune Globulin/Pf 900 Unit/3 Ml Vial 20 unit/kg (1458 unit) 07/04/24 10:27 1,458 unit IM Administration ONCE ONE Rabies Vaccine 1 ml 07/04/24 10:26 07/04/24 11:11 Rabies Vaccine (Pcec)/Pf 1 Ml Vial IM 07/04/24 10:27 1 ml .ONCE ONE Administration Medical Decision Making Medical Decision Making MDM Narrative: 28-year-old female presents to the ED for being bitten by a stray cat in right hand. Rabies vaccine ordered. Tetanus shot ordered. Patient will follow-up with infusion center. Patient is educated on worrisome signs of informed to return to the ED immediately. Negative for lymphangitis, cellulitis, tenosynovitis, osteomyelitis, necrotizing fascitits, compartment syndrome, or arterial occlusion. Differential Diagnosis Differential Diagnoses: The differential diagnosis associated with the presentation includes (Animal bite) Admission/Observation Consideration of admission/observation: Escalation of care including admission/observation considered Independent Historian Clinical information obtained from an independent historian. History obtained from or confirmed by: Other (Patient) External Record Review External record reviewed: Other (Prior visits) Prescription Management I considered prescription management with: Antibiotic Discharge Plan Discharge Clinical Impression: Animal bite, Cat bite Patient Disposition: Home, Self-Care Instructions: Animal Bite (ED) Additional Instructions: You will follow-up with the infusion center for completion any of your rabies injection. They will call you. Return to the ED immediately for worsening redness, increased swelling, fever, chills, inability to move fingers, pus discharge, foul odor, or any other concerning symptoms. Prescriptions: New amoxicillin-pot clavulanate 875-125 mg tablet 1 tab PO Q12H 10 Days Qty: 20 0RF naproxen 500 mg tablet 500 mg PO BID PRN (Reason: pain) 7 Days Qty: 14 0RF No Action naltrexone 50 mg tablet 50 mg PO DAILY Qty: 30 0RF Rx Instructions: Take 1/2 tab x 3 days and advance to full tab if tolerated well lorazepam [Ativan] 1 mg tablet 1 mg PO TID PRN (Reason: alcohol withdrawal) Qty: 10 0RF ashwagandha root extract 300 mg Capsule 600 mg PO BID PRN (Reason: Anxiety) naltrexone 50 mg tablet 50 mg PO DAILY Qty: 30 0RF Rx Instructions: 1/2 tab x 2 days, then full tab. Stand Alone Forms: Work/School Release Interventions: ED Discharge Assessment Last Done: 07/04/24 12:06 Discharge Date/Time: 07/04/24 12:07 Print Language: Telugu
[2024-07-04] MEDS: Rabies Vaccine (PCEC)/PF 1 ML VIAL IM (11:11)
[2024-07-04] MEDS: Diphth,Pertus(ACell),Tet Adult 0.5 ML SYRINGE IM (11:11)
[2024-07-04] MEDS: Rabies Immune Globulin/PF 900 UNIT/3 ML VIAL 1458 UNIT IM (11:12)
[2024-07-04 12:06] VITALS: BP 138/87; PULSE 95; RESP 16; TEMP 36.9; O2SAT 98
== END 2024-07-04 12:07 | disposition home or self-care (01) ==
PROVIDERS: Emergency Provider Emergency Medicine
DX: S61.451A Open bite of right hand, initial encounter (principal); S50.871A Other superficial bite of right forearm, initial encounter; W55.01XA Bitten by cat, initial encounter; Y93.9 Activity, unspecified; Y92.9 Unspecified place or not applicable; Y99.9 Unspecified external cause status; Z20.3 Contact with and (suspected) exposure to rabies; Z29.14 Encounter for prophylactic rabies immune globulin; Z23 Encounter for immunization
CPT/HCPCS: 90375; 90471; 90472; 90675; 90715; 96372; 99284

== ENCOUNTER 2024-10-09 07:16 | Emergency (ER) | payer OTHER, SELFPAY ==
[2024-10-09 07:20] VITALS: BP 140/103; PULSE 130; RESP 18; TEMP 37; O2SAT 98; BMI 28.3
--- NOTE | 2024-10-09 07:32 | ED.GENADULT ---
HPI - General Adult General Chief complaint: ETOH/Substance Use Stated complaint: withdrawal Time Seen by Provider: 10/09/24 07:31 Source: patient, RN notes reviewed and old records reviewed Mode of arrival: ambulatory Limitations: no limitations History of Present Illness ED Provider: Nava OCHOA narrative: Patient is a 28-year-old female with history of alcohol use disorder, denies history of withdrawal seizures presenting to the emergency department requesting assistance with detox/withdrawal symptoms. States that she has been binge drinking Fireball for the past several days, 3.5 pints. Last drink around 19:30 last night, states since that time has had nausea, vomiting, diarrhea and has been unable to tolerate any PO fluids. Has spoken with Funmi from [facility] in the past regarding naltrexone, states she feels ready to try at this time. Denies suicidal or homicidal ideation, auditory or visual hallucinations. MD complaint: alcohol use Treatments prior to arrival: none Related Data Home Medications ?Medication ?Instructions ?Recorded ?Confirmed ashwagandha root extract 300 mg 600 mg PO BID PRN Anxiety 08/20/23 08/20/23 capsule Previous Rx's ?Medication ?Instructions ?Recorded lorazepam 1 mg tablet (Ativan) 1 mg PO TID PRN alcohol withdrawal 09/21/23 #10 tabs naltrexone 50 mg tablet 50 mg PO DAILY #30 tabs 10/23/23 naltrexone 50 mg tablet 50 mg PO DAILY #30 tabs 11/15/23 amoxicillin 875 mg-potassium 1 tab PO Q12H 10 days #20 tabs 07/04/24 clavulanate 125 mg tablet naproxen 500 mg tablet 500 mg PO BID PRN pain 7 days #14 07/04/24 tabs Allergies Allergy/AdvReac Type Severity Reaction Status Date / Time No Known Allergies Allergy Verified 10/09/24 07:23 [No Known Allergies*] Review of Systems Review of Systems: As per HPI. Yes all other systems are reviewed and are negative Constitutional: Constitutional: Reports as per HPI [facility] Past Medical History Medical History Alcohol use disorder Social History Social History Household Members: Significant Other Household Members Other:: 2 Housing: House Do you presently have visiting nurse or other home services: No Alcohol intake: current Alcohol intake frequency: 3 or more drinks per day Alcohol type: hard liquor Patient Tobacco Use Status: Current everyday Tobacco user Tobacco use type: Cigarette e-Cigarette/Vaping Use: Never Used Substance Use Type: Marijuana Advance Directives: No Advance Directives Information Provided: Yes Do you have a plan to hurt others: No Plan service: No Physical Exam ED Vital Signs: Vital Signs - 24 hr 10/09/24 07:20 10/09/24 09:37 10/09/24 11:24 Temperature 98.6 F 98.9 F Pulse Rate 130 H 105 H 115 H Respiratory Rate 18 20 16 Blood Pressure 140/103 H 133/93 H 128/85 Pulse Oximetry 98 98 97 Oxygen Delivery Method Room Air Room Air Room Air BMI result Body Mass Index 28.3 Vital signs have been reviewed and appear to be correct. Blood pressure elevated. Heart rate tachycardic. Respiratory rate normal. Temperature normal. Oxygen saturation normal. Const General: cooperative, healthy appearing and no acute distress Orientation/consciousness: oriented to person, oriented to place, oriented to time and patient oriented x3 Limitations: no limitations HENMT Head: Yes normocephalic and Yes atraumatic Ears: external ears normal General nose exam: Normal external nose present Face and sinus: Yes face symmetric Mouth: oropharynx normal, moist mucous membranes and tongue abnormal (mild fasiculations) Throat: Yes uvula midline Eyes Pupils: Equal, round and reactive pupils present Neck Neck: Yes normal visual inspection and Yes supple Resp Effort & Inspection: normal respiratory effort and able to speak in complete sentences Auscultation: clear to auscultation bilaterally Cardio Rate: regular rate Rhythm: regular rhythm Heart sounds: S1 normal heart sound present and S2 normal heart sound present GI Palpation (GI): Soft to palpation and nontender Auscultation: normoactive bowel sounds General: Yes no CVA tenderness Back/Spine/Pelvis Back: no CVA tenderness Skin General skin exam: elasticity normal and turgor normal Neuro General: oriented to person, oriented to place, oriented to time, patient oriented x3, moves all extremities, no focal motor deficits and CN's II-XI intact bilaterally Cranial nerves: Yes Equal, round and reactive pupils present Cognition (Neuro): normal cognition Motor exam (neuro): Tremors during motor activity present (slight tremors to all extremities) Extrem General: Yes full ROM, Yes no pedal edema and Yes no calf tenderness Psych Mental Status: mental status grossly normal Affect: normal affect Thought process: Normal thought process present Medications Administered Discontinued Medications Generic Name Dose Route Start Last Admin Trade Name Stanley PRN Reason Stop Dose Admin Sodium Chloride 1,000 mls @ 999 mls/hr 10/09/24 08:00 10/09/24 08:58 Ns IV 10/09/24 09:00 Infused .Q1H1M KARLO Infusion Sodium Chloride 1,000 mls @ 999 mls/hr 10/09/24 09:15 10/09/24 10:38 Ns IV 10/09/24 10:15 Infused .Q1H1M KARLO Infusion Lorazepam 1 mg 10/09/24 07:49 10/09/24 08:03 Lorazepam 2 Mg/Ml Vial IVPUSH 10/09/24 07:50 1 mg STAT STA Administration Lorazepam 2 mg 10/09/24 10:29 10/09/24 10:42 Lorazepam 1 Mg Tablet PO 10/09/24 10:30 2 mg ONCE ONE Administration Ondansetron HCl 4 mg 10/09/24 07:59 10/09/24 08:10 Ondansetron Hcl 4 Mg/2 Ml Vial IVPUSH 10/09/24 08:00 4 mg ONCE ONE Administration Potassium Chloride 40 meq 10/09/24 08:33 10/09/24 08:57 Potassium Chloride Packet 20 Meq Packet PO 10/09/24 08:34 40 meq ONCE ONE Administration Medical Decision Making Medical Decision Making [facility] Narrative: Patient is a 28-year-old female with history of alcohol use disorder, denies history of withdrawal seizures presenting to the emergency department requesting assistance with detox/withdrawal symptoms. On exam patient is awake, A+Ox3, BP elevated, tachycardic, VS otherwise WNL, afebrile, normal neurological exam without focal deficits, physical exam findings as above. Given reported symptoms and physical exam findings, initial differential includes but is not limited to alcohol withdrawal, alcohol use disorder, electrolyte abnormality. EKG shows normal sinus rhythm, rate 98. Labs notable for mild hypokalemia, elevated transaminases with normal bilirubin. PO potassium ordered. Urine drug screen positive for THC, ethanol 98. Seen by CARE team and accepted to [facility] detox. Return precautions discussed. Patient verbalized understanding of and agreement with plan. Differential Diagnosis Differential Diagnoses: The differential diagnosis associated with the presentation includes As per MDM Admission/Observation Consideration of admission/observation: Escalation of care including admission/observation considered Patient would have been admitted to the hospital had their work up had any findings where hospital admission was appropriate and their clinical presentation warranted hospital admission. Consult Healthcare Provider Management of the patient was discussed with: Behavioral Health Provider Lab Data [facility] Lab Attestation statement: I reviewed the patient's lab results. As per [facility] 10/09/24 07:55 10/09/24 07:55 Labs: Lab Results 10/09/24 10/09/24 Range/Units 07:55 08:12 WBC 8.4 (4.8-10.8) X10*3/uL RBC 5.30 (4.20-5.50) X10*6/uL Hgb 15.5 (12.0-16.0) g/dl Hct 45.1 (37.0-47.0) % MCV 85.1 (80.0-98.0) fL MCH 29.2 (27.0-33.0) pg MCHC 34.4 (31.0-35.0) g/dl RDW 13.2 (11.0-16.0) % Plt Count 346 (160-400) X10*3/uL MPV 8.8 L (9.4-12.3) fL Immature Gran % (Auto) 0.2 (0.0-0.4) % Neut % (Auto) 69.8 (45-73) % Lymph % (Auto) 22.2 (20-40) % Nelson % (Auto) 7.2 (2-11) % Eos % (Auto) 0.0 (0-4) % Baso % (Auto) 0.6 (0-2) % Lymph # (Auto) 1.9 (1.2-4.9) X10*3/uL Nelson # (Auto) 0.6 (0.1-1.2) X10*3/uL Eos # (Auto) 0.0 (0.0-0.4) X10*3/uL Baso # (Auto) 0.1 (0.0-0.2) X10*3/uL Abs Immat Gran (auto) 0.02 (0.00-0.03) X10*3/uL Absolute Neuts (auto) 5.9 (2.0-8.3) x10*3/uL Absolute Nucleated RBC 0.000 (0.0-0.012) X10*3/uL Nucleated RBC % (auto) 0.0 (0.0-0.2) /100WBC Sodium 139 (135-145) mmol/L Potassium 3.1 L (3.3-5.1) mmol/L Chloride 99 (96-108) mmol/L Carbon Dioxide 26 (22-29) mmol/L Anion Gap 17 (12-20) BUN 4 L (9-16) mg/dL Creatinine 0.70 (0.5-1.4) mg/dL Estim Creat Clear Calc 105.5 Estimated GFR > 60 Random Glucose 126 H (60-115) mg/dL Calcium 8.6 (8.4-10.2) mg/dL Magnesium 1.7 (1.6-2.6) mg/dL Total Bilirubin 0.4 (0.0-1.0) mg/dL AST 101 H (5-31) U/L ALT 88 H (0-31) U/L Alkaline Phosphatase 87 (39-117) U/L Total Protein 8.1 H (6.5-8.0) g/dL Albumin 4.7 (3.5-5.0) g/dL Lipase 14 (8-78) U/L Beta HCG, Quant < 2 mIU/mL Ethyl Alcohol 98 mg/dL Influenza Type A (PCR) NEGATIVE (Negative) Influenza Type B (PCR) NEGATIVE (Negative) RSV RNA Qual (PCR) NEGATIVE (Negative) SARS-CoV-2 RNA (RT-PCR) NEGATIVE (Negative) Independent Interpretation I performed an independent interpretation of an: EKG (normal sinus rhythm, rate 98bpm, normal NH interval, no significant change from prior) External Record Review External record reviewed: Inpatient record, Office record and Outpatient record Discharge Plan Discharge Clinical Impression: Alcoholic intoxication, Alcohol use disorder Patient Disposition: Home, Self-Care Instructions: Abuse of Alcohol (DC), Alcohol Intoxication (ED), Alcohol Use Disorder (ED), Alcohol Withdrawal (DC) Additional Instructions: You have been accepted to [facility] for detox from alcohol. Alcohol use disorder You were seen in the Emergency Department today for treatment of alcohol use disorder.? You may have been given medications to help with your withdrawal symptoms.? Please do not drink alcohol with them. This is very dangerous and can cause respiratory depression or other adverse reactions depending on the medication. If you would like to cut down or stop your alcohol use please consider calling our outpatient Addiction Treatment office:? [facility] (M-F 9a) [address] [place] [address] [address] ? You have also been given a list of treatment providers in the area that can assist as well.? If you experience seizures, vomiting blood, black stools, falls, severe headache, chest pain, fevers, trouble breathing, hallucinations or any other concerns you need to call 911 or seek immediate care. Please stay hydrated. Prescriptions: No Action naltrexone 50 mg tablet 50 mg PO DAILY Qty: 30 0RF Rx Instructions: Take 1/2 tab x 3 days and advance to full tab if tolerated well lorazepam [Ativan] 1 mg tablet 1 mg PO TID PRN (Reason: alcohol withdrawal) Qty: 10 0RF amoxicillin-pot clavulanate 875-125 mg tablet 1 tab PO Q12H 10 Days Qty: 20 0RF naproxen 500 mg tablet 500 mg PO BID PRN (Reason: pain) 7 Days Qty: 14 0RF ashwagandha root extract 300 mg Capsule 600 mg PO BID PRN (Reason: Anxiety) naltrexone 50 mg tablet 50 mg PO DAILY Qty: 30 0RF Rx Instructions: 1/2 tab x 2 days, then full tab. Print Language: Kyrgyz
--- NOTE | 2024-10-09 07:49 | ECG_ITS ---
Test Reason : TACHYCARDIC Blood Pressure : */* mmHG Vent. Rate : 98 BPM Atrial Rate : 98 BPM P-R Int : 120 ms QRS Dur : 92 ms QT Int : 360 ms P-R-T Axes : 53 62 30 degrees QTcB Int : 459 ms Normal sinus rhythm Normal ECG When compared with ECG of 20-Aug-2023 01:26, No significant change was found Referred By: Liseth Vick Electronically Signed By: BRYNN WHATLEY
[2024-10-09 08:00] LABS: MANUAL DIFF FLAG NO
[2024-10-09] MEDS: LORazepam 2 MG/ML VIAL 1 MG IVPUSH (08:03)
[2024-10-09] MEDS: 0.9 % Sodium Chloride 1,000 ML 999 ML IV ×2 (08:03→09:30)
[2024-10-09 08:05] LABS: Basophils Absolute Auto 0.1 X10*3/uL (0.0-0.2); Basophils Percent Auto 0.6 % (0-2); Hematocrit 45.1 % (37.0-47.0); Hemoglobin 15.5 g/dl (12.0-16.0); Imm Gran Abs Auto 0.02 X10*3/uL (0.00-0.03); Imm Gran Pct Auto 0.2 % (0.0-0.4); Lymphocytes Absolute Auto 1.9 X10*3/uL (1.2-4.9); Lymphocytes Percent Auto 22.2 % (20-40); Mean Corpuscular HGB Conc 34.4 g/dl (31.0-35.0); Mean Corpuscular Hemoglobin 29.2 pg (27.0-33.0); Mean Corpuscular Volume 85.1 fL (80.0-98.0); Mean Platelet Volume 8.8 fL (9.4-12.3); Monocytes Absolute Auto 0.6 X10*3/uL (0.1-1.2); Monocytes Percent Auto 7.2 % (2-11); Neutrophils Absolute Auto 5.9 x10*3/uL (2.0-8.3); Neutrophils Percent Auto 69.8 % (45-73); Platelet Count 346 X10*3/uL (160-400); Red Cell Distribution Width 13.2 % (11.0-16.0); White Blood Count 8.4 X10*3/uL (4.8-10.8)
[2024-10-09] MEDS: ondansetron HCL 4 MG/2 ML VIAL IVPUSH (08:10)
[2024-10-09 08:29] LABS: Alanine Aminotransferase 88 U/L (0-31); Albumin Level 4.7 g/dL (3.5-5.0); Alkaline Phosphatase 87 U/L (39-117); Anion Gap 17 (12-20); Aspartate Amino Transferase 101 U/L (5-31); Bilirubin Total 0.4 mg/dL (0.0-1.0); Blood Urea Nitrogen 4 mg/dL (9-16); Calcium 8.6 mg/dL (8.4-10.2); Carbon Dioxide 26 mmol/L (22-29); Chloride 99 mmol/L (96-108); Creatinine Clr Calc Pharmacy 105.5; Estimated Glomerular Filt Rate > 60; Ethanol 98 mg/dL; Glucose Random 126 mg/dL (60-115); Lipase 14 U/L (8-78); Magnesium 1.7 mg/dL (1.6-2.6); Potassium 3.1 mmol/L (3.3-5.1); Sodium 139 mmol/L (135-145); Total Protein 8.1 g/dL (6.5-8.0)
[2024-10-09 08:36] LABS: HCG Quantitative < 2 mIU/mL
[2024-10-09] MEDS: Potassium Chloride Packet 20 MEQ PACKET 40 MEQ PO (08:57)
[2024-10-09 09:00] LABS: Influenza A PCR NEGATIVE (Negative); Influenza B PCR NEGATIVE (Negative); Resp Syncy Virus RNA Qual PCR NEGATIVE (Negative); SARS COV2 PCR INHOUSE NEGATIVE (Negative)
--- NOTE | 2024-10-09 09:27 | MHC.RECOVRN ---
Met with pt in [id number] to discuss ongoing alcohol use. Pt interested in going to [facility] for detox. Referral sent to [facility] for review and waiting to hear back. See Recovery/MH assessment on worklist for more info.
[2024-10-09 09:37] VITALS: BP 133/93; PULSE 105; RESP 20; O2SAT 98
--- NOTE | 2024-10-09 09:47 | PC.NURSE ---
VSS remain stable, patient in sinus tach on monitor. patient states she still feels anxious
[2024-10-09] MEDS: LORazepam 1 MG TABLET 2 MG PO (10:42)
[2024-10-09 11:24] VITALS: BP 128/85; PULSE 115; RESP 16; TEMP 37.2; O2SAT 97
[2024-10-09 11:58] VITALS: BP 128/85; PULSE 107; RESP 16; TEMP 37.2; O2SAT 97
[2024-10-09 12:00] LABS: Amphetamine Screen Urine Not Detected (Not Detect); Barbiturates, Urine Not Detected (Not Detect); Benzodiazepines Screen Urine Not Detected (Not Detect); Buprenorphine Scr Not Detected (Not Detect); Cannabinoid Screen Urine POSITIVE (Not Detect); Cocaine Screen Urine Not Detected (Not Detect); Fentanyl, urine Not Detected (Not Detect); Methadone Screen, Urine Not Detected (Not Detect); Opiate Screen Urine Not Detected (Not Detect); Oxycodone Screen Urine Not Detected (Not Detect); Phencyclidine Screen Urine Not Detected (Not Detect)
== END 2024-10-09 12:00 | disposition home or self-care (01) ==
PROVIDERS: Registered Nurse Emergency; Emergency Provider Emergency Medicine; PCP Physician Assistant
DX: F10.120 Alcohol abuse with intoxication, uncomplicated (principal); Y90.4 Blood alcohol level of 80-99 mg/100 ml; R00.0 Tachycardia, unspecified; R11.2 Nausea with vomiting, unspecified; F17.210 Nicotine dependence, cigarettes, uncomplicated; Z03.818 Encounter for observation for suspected exposure to other biological agents ruled out; Z79.899 Other long term (current) drug therapy
CPT/HCPCS: 0241U; 36415; 80053; 80307; 83690; 83735; 84702; 85025; 93005; 96361; 96374; 96375; 99285; J2060; J2405; S9485

== ENCOUNTER → 2024-10-09 07:49 | Outpatient (BNV) | payer OTHER, SELFPAY | PROVIDERS: Emergency Provider Emergency Medicine; PCP Physician Assistant; Visit Provider Internal Medicine | DX: R00.0 Tachycardia, unspecified (principal) | CPT/HCPCS: 93010 ==